=== PATIENT | male | born 1965 | race Caucasian/White ===

== ENCOUNTER 2016-09-21 15:47 | Inpatient (IN) | payer BC ==
[~2016-09-21] VITALS: Ht 180.3 cm; Wt 68.6 kg
[2016-09-21] VITALS (12 sets, daily range): BP systolic 120–164; BP diastolic 76–107
[~2016-09-21 15:47] MED LIST: AMOX-358 PO; ASPI-586 PO; CARV3.12 PO; CARV6.25 PO; CYCL10TA9 PO; DICL50TA4 PO; HYDR-3812 PO; HYDR1TAB PO; LISI-594 PO; LOPRESSOR PO; LSNP20T PO; METH4TAB PO; METOPROLOL PO; NITR0.4T39 SL; SULF1TAB38 PO; TICA90TA PO; TR1C15 TP
--- OUTSIDE RECORDS SUMMARY | 2016-09-21 15:52 | XMS REPORT ---
Author Author ADITYA GOMES Organization [facility] Address [address] [place] [address] Care Team Providers Care Teacher Of The Sight Impaired Name Role Phone ADITYA GOMES Unavailable PROBLEMS Type Condition ICD9-CM Code [id number] Code Onset Dates Condition Status SNOMED Code Assessment Bronchitis J40 Feb, Active [id number] Assessment Impacted cerumen of left ear H61.22 Feb, Active [id number] ALLERGIES Substance Reaction Event Type Date Status Rocephin Unknown Drug Allergy Feb, Active SOCIAL HISTORY No smoking Hx information available PLAN OF CARE VITAL SIGNS Height 70 in 2016-02-22 Weight 171 lbs 2016-02-22 Heart Rate 68 bpm 2016-02-22 Respiratory Rate 18 2016-02-22 BMI 24.53 kg/m2 2016-02-22 Blood pressure systolic 130 mmHg 2016-02-22 Blood pressure diastolic 78 mmHg 2016-02-22 MEDICATIONS Medication Instructions Dosage Frequency Start Date End Date Duration Status Zithromax 250 MG Orally Once a day 2 tablets on the first day, then 1 tablet daily for 4 days 24h Feb, Feb, 5 day(s) Active Lisinopril 5 MG Orally Once a day 1 tablet 24h Active Aspir-Doreen 325 mg take 1 tablet (325 mg) by oral route once daily Dec, Active RESULTS No Results PROCEDURES Procedure Date Ordered Related Diagnosis Body Site EAR LAVAGE 2016-02-22 N/A EAR IRRIGATION Feb 22, 2016 Office Visit, Est Pt., Level 2 Feb 22, 2016 IMMUNIZATIONS No Known Immunizations
--- OUTSIDE RECORDS SUMMARY | 2016-09-21 15:53 | XMS REPORT ---
Author ADITYA Alvarez [facility] eClinicalWorks Address Unknown Phone Unavailable Care Team Providers Care Rehabilitation Services Coordinator Name Role Phone ADITYA GOMES CP Unavailable Allergies, Adverse Reactions, Alerts Substance Reaction Event Type Rocephin Info Not Available Drug Allergy Problems Problem Type Condition Code Onset Dates Condition Status Problem Lumbago 724.2 Active Problem Other and unspecified alcohol dependence, unspecified drunkenness 303.90 Active Problem Lateral epicondylitis of elbow 726.32 Active Problem Counseling on substance use and abuse V65.42 Active Problem Acute bronchitis 466.0 Active Problem Unspecified conjunctivitis 372.30 Active Problem Essential hypertension, benign 401.1 Active Problem Nondependent tobacco use disorder 305.1 Active Problem Cough 786.2 Active Problem Acute upper respiratory infections of unspecified site 465.9 Active Assessment Abdominal pain R10.9 Active Problem Chronic airway obstruction, not elsewhere classified 496 Active Problem Personal history of tobacco use, presenting hazards to health V15.82 Active Problem Phlebitis and thrombophlebitis of lower extremities, unspecified 451.2 Active Problem Scabies 133.0 Active Problem Screening examination for pulmonary tuberculosis V74.1 Active Problem Loss of weight 783.21 Active Medications Medication Code System Code Instructions Start Date End Date Status Dosage Brilinta [facility] [address]-52 90 MG Orally Twice a day 1 tablet Lisinopril [facility] [address]-66 5 MG Orally Once a day 1 tablet Aspir-Doreen NDC 0 325 mg Jan 06, 2014 take 1 tablet (325 mg) by oral route once daily Procedures Procedure Coding System Code Date COMPREHEN METABOLIC PANEL CPT-4 00984 Dec 30, 2014 C-REACTIVE PROTEIN CPT-4 09762 Dec 30, 2014 COMPLETE CBC W/AUTO DIFF WBC CPT-4 16655 Dec 30, 2014 Office Visit, Est Pt., Level 4 CPT-4 00772 Dec 30, 2014 VENIPUNCT, ROUTINE* CPT-4 73387 Dec 30, 2014 Vital Signs Date/Time: Dec 30, 2014 Temperature 97.9 F Weight 145 lbs Height 70 in BMI 20.80 Index Blood Pressure Diastolic 80 mmHg Blood Pressure Systolic 122 mmHg Cardiac Monitoring Heart Rate 78 bpm Results Name Result Date Reference Range Unit Abnormality Flag ROUTINE VENIPUNCTURE CMP Summary Purpose eClinicalWorks Submission
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
--- NOTE | 2016-09-21 16:06 | Diagnostic Imaging Report ---
EXAM: CT head. TECHNIQUE: Noncontrast axial images of the brain were obtained. INDICATION: Left-sided weakness. FINDINGS: There is no intracranial hemorrhage, edema or mass effect. The brain parenchyma appears unremarkable. No hydrocephalus. The visualized portions of the orbits and paranasal sinuses appear unremarkable. IMPRESSION: Unremarkable study. Dictated by: Dictated on workstation # [id number]
[2016-09-21] MEDS ORDERED: morphine INJ 10 MG/ML 1ML (SYR OR VIAL) ONE (16:07)
[2016-09-21] MEDS ORDERED: NS IV 1000 ML 1,000 ML IV SCH (16:08)
[2016-09-21] MEDS ORDERED: ALTEPLASE 100 MG/VIAL (ACTIVASE) IV ONE (16:08)
[2016-09-21] MEDS ORDERED: morphine INJ 10 MG/ML 1ML (SYR OR VIAL) IV STA (16:08)
--- NOTE | 2016-09-21 16:20 | ED Neurological Problem ---
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 FLACID ON L SIDE ON ADMIT TO ED. Nursing Sepsis Screen: No Definite Risk History of Present Illness Time seen by provider: 16:00 Initial Comments Patient and feeling crummy for the last day and a half and started having some chest pressure today so he took 325 of aspirin chewed it up at about 3:30. At that time he experienced full left sided body paralysis called his girlfriend drove him to the ER. He arrived here he has had mini strokes in the past but he states he's never had a stroke. He is not on a blood thinners other than aspirin 81 mg daily plus to 325 he took around 3:30. His last known well time was 3:30 this afternoon. He is having dull 4 out of 10 chest pain on the left side without shortness of breath diaphoresis or nausea. The patient had a heart attack approximately 2 years ago and was taken care of by Dr. Gutierrez in [place]. He was then supposed to follow up with cardiology and [place] but although he has insurance he does not have a primary care physician and did not have a referral so he could not make an appointment. He has not established with a primary since then so he saw the anime designer one time approximately a year ago but not since. He is taking lisinopril although he thinks he missed this morning. Allergies and Home Medications Allergies Coded Allergies: ceftriaxone sodium (Verified Allergy, Intermediate, ITCHING AND SWELLING, 04/14/11) Home Medications Aspirin 81 Mg Tablet., 81 MG PO DAILY, (Reported) Lisinopril 5 Mg Tablet, 5 MG PO DAILY, (Reported) Constitutional: No chills, No diaphoresis, No fever, malaise Respiratory: No cough, No short of breath, No wheezing Cardiovascular: chest pain (left-sided 45 out of 10), No edema, Hx of Intervention (2 years ago stents placed by Dr. Gutierrez), No palpitations, No syncope, vascular heart diseas Gastrointestinal: No abdominal pain, No constipation, No diarrhea, No nausea Genitourinary: No discharge (JUNIE), No dysuria Musculoskeletal: No back pain, No joint pain Skin: No pruritus, No rash Past Wqcpoer-Mncdei-Lutzwx Hx Patient Social History Alcohol Use: Occasionally Uses Recreational Drug Use: No Smoking Status: Current Everyday Smoker Type Used: Cigarettes Recent Foreign Travel: No Contact w/Someone Who Travel: No Recent Infectious Disease Expo: No Recent Hopitalizations: No Immunizations Up To Date Tetanus Booster (TDap): Less than 5yrs Date of Influenza Vaccine: Dec 12, 2008 Seasonal Allergies Seasonal Allergies: No Surgeries HX Surgeries: Yes (stent x 1) Surgeries: Coronary Stent Respiratory Hx Respiratory Disorders: Yes Respiratory Disorders: COPD Cardiovascular Hx Cardiac Disorders: Yes (LAD STENT) Cardiac Disorders: Coronary Artery Disease, Heart Murmur, High Cholesterol, Hypertension Neurological Hx Neurological Disorders: Yes (3 TIA'S LAST ONE 2006) Neurological Disorders: TIA Reproductive System Hx Reproductive Disorders: No Genitourinary Hx Genitourinary Disorders: No Gastrointestinal Hx Gastrointestinal Disorders: No Musculoskeletal Hx Musculoskeletal Disorders: Yes Musculoskeletal Disorders: Degenerate Disk Disease Endocrine Hx Endocrine Disorders: No HEENT HX ENT Disorders: No Cancer Hx Cancer: No Psychosocial Hx Psychiatric Problems: No Integumentary HX Skin/Integumentary Disorder: No Blood Transfusions Hx Blood Disorders: No Family Medical History Significant Family History: No Pertinent Family Hx Physical Exam Vital Signs Vital Sign - Last 12Hours 09/21/16 15:47 Temp 98.9 Pulse 82 Resp 18 B/P (MAP) 168/108 Pulse Ox 98 O2 Delivery Nasal Cannula O2 Flow Rate 2.00 Capillary Refill : Less Than 3 Seconds General Appearance: WD/WN, mild distress HEENT: PERRL/EOMI, normal ENT inspection, TMs normal, pharynx normal Neck: non-tender, full range of motion, supple, normal inspection Respiratory: chest non-tender, lungs clear, normal breath sounds Cardiovascular: normal peripheral pulses, regular rate, rhythm, no edema, no murmur Peripheral Pulses: 3+ Dorsalis Pedis (R), 3+ Left Dors-Pedis (L), 3+ Radial Pulses (R), 3+ Radial Pulses (L) Gastrointestinal: normal bowel sounds, non tender, soft Extremities: no pedal edema, normal capillary refill 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, alert, normal mood/affect, oriented x 3 Coordination/Gait: positive Romberg's sign (left upper and lower extremities) Motor/Sensory: sensory deficit (no sensation from the calf down or forearm distal on the left side.), weak motor strength LUE (no movement against gravity) , weak motor strength LLE (no movement against gravity) Reflexes: 2+ Knee (R), 2+ Knee (L) Skin: normal color, warm/dry, ecchymosis (left Hansen) Lymphatic: no adenopathy Stroke Onset of Symptoms Date of Onset of Symptoms: Sep 21, 2016 Time of Symptom Onset: 15:30 Onset of Symptoms: Yes Symptoms onset unknown: No NIH Stroke Scale Assessment Select: Initial Level of Consciousness: 0=Alert Level of Consciousness-Questio: 0=Answers both month/age LOC Commands: 0=Performs both tasks Gaze: 0=Normal Visual Fallon: 0=No visual loss Facial Movement (Facial Paresi: 2=Partial paralysis Motor Function-Arms Right: 0=No drift Motor Function-Arms Left: 3=No effort/gravity Motor Function-Legs Right: 0=No drift Motor Function-Legs Left: 3=No effort/gravity Limb Ataxia: 1=Present in one limb Sensory: 1=Mild to Moderate loss Best Language: 0=No aphasia Dysarthria: 1=Mild to moderate loss Extinction & Inattention: 0=No abnormality NIH Stroke Scale Score: 11 Stroke Thrombolytic Exclusion Age 18 or Over: Yes Acute intenal hemorrhage: No History of CVA: No (history of TIAs) Uncontrolled Coagulation Defec: No Intracranial Hemorrhage: No Severe Hypertension: No GI or Bleed: No Subarachnoid Hemorrhage: No Intracranial Neoplasm/Aneurysm: No Oral Anticoagulants: No Surgery or Trauma: No Puncture of Non-Compressible V: No Recent CPR: No Diabetic Hemorrhagic Retinopat: No Organ Biopsy: No Recent Obstetric Delivery: No Glucose: No (84) Significant Hepatic Dysfunctio: No NIH Stoke Scale >22: No Bacterial Endocarditis: No Pericarditis: No Improving Symptoms: No Platelets: No TPA Contraindication: No IV - TPa Received IV - TPa Procedure Performed?: Yes IV - TPa Date: Sep 21, 2016 IV - TPa Time: 16:27 Progress/Results/Core Measures Results/Orders Lab Results Laboratory Tests Test 09/21/16 15:49 09/21/16 16:39 Range/Units White Blood Count 7.8 4.3-11.0 10^3/uL Red Blood Count 5.04 4.35-5.85 10^6/uL Hemoglobin 17.2 13.3-17.7 G/DL Hematocrit 49 40-54 % Mean Corpuscular Volume 97 80-99 FL Mean Corpuscular Hemoglobin 34 25-34 PG Mean Corpuscular Hemoglobin Concent 35 32-36 G/DL Red Cell Distribution Width 11.7 10.0-14.5 % Platelet Count 216 130-400 10^3/uL Mean Platelet Volume 10.0 7.4-10.4 FL Neutrophils (%) (Auto) 50 42-75 % Lymphocytes (%) (Auto) 34 12-44 % Monocytes (%) (Auto) 14 H 0-12 % Eosinophils (%) (Auto) 1 0-10 % Basophils (%) (Auto) 1 0-10 % Neutrophils # (Auto) 3.9 1.8-7.8 X 10^3 Lymphocytes # (Auto) 2.6 1.0-4.0 X 10^3 Monocytes # (Auto) 1.1 H 0.0-1.0 X 10^3 Eosinophils # (Auto) 0.1 0.0-0.3 10^3/uL Basophils # (Auto) 0.1 0.0-0.1 10^3/uL Prothrombin Time 13.6 12.2-14.7 SEC INR Comment 1.1 0.8-1.4 Activated Partial Thromboplast Time 29 24-35 SEC D-Dimer < 0.27 0.00-0.49 UG/ML Sodium Level 138 135-145 MMOL/L Potassium Level 3.7 3.6-5.0 MMOL/L Chloride Level 105 98-107 MMOL/L Carbon Dioxide Level 22 21-32 MMOL/L Anion Gap 11 5-14 MMOL/L Blood Urea Nitrogen 11 7-18 MG/DL Creatinine 0.74 0.60-1.30 MG/DL Estimat Glomerular Filtration Rate > 60 BUN/Creatinine Ratio 15 Glucose Level 76 70-105 MG/DL Calcium Level 9.5 8.5-10.1 MG/DL Magnesium Level 2.1 1.8-2.4 MG/DL Total Bilirubin 1.7 H 0.1-1.0 MG/DL Aspartate Amino Transf (AST/SGOT) 16 5-34 U/L Alanine Aminotransferase (ALT/SGPT) 16 0-55 U/L Alkaline Phosphatase 73 40-136 U/L Myoglobin 34.9 10.0-92.0 NG/ML Troponin I < 0.30 <0.30 NG/ML Total Protein 7.5 6.4-8.2 GM/DL Albumin 4.5 3.2-4.5 GM/DL Urine Color YELLOW Urine Clarity CLEAR Urine pH 6 5-9 Urine Specific [place] 1.010 L 1.016-1.022 Urine Protein NEGATIVE NEGATIVE Urine Glucose (UA) NEGATIVE NEGATIVE Urine Ketones 2+ H NEGATIVE Urine Nitrite NEGATIVE NEGATIVE Urine Bilirubin NEGATIVE NEGATIVE Urine Urobilinogen NORMAL NORMAL MG/DL Urine Leukocyte Esterase NEGATIVE NEGATIVE Urine RBC (Auto) 1+ H NEGATIVE Urine RBC 0-2 /HPF Urine WBC NONE /HPF Urine Squamous Epithelial Cells RARE /HPF Urine Crystals NONE /LPF Urine Bacteria NONE /HPF Urine Casts NONE /LPF Urine Mucus NEGATIVE /LPF Urine Culture Indicated NO My Orders Orders - KATELYN ZAMAN Ct Head Wo-R/O Stroke (09/21/16 15:53) Cbc With Automated Diff (09/21/16 16:08) Protime With Inr (09/21/16 16:08) Partial Thromboplastin Time (09/21/16 16:08) Comprehensive Metabolic Panel (09/21/16 16:08) Fibrin Degradation Products (09/21/16 16:08) Troponin I (09/21/16 16:08) Ua Culture If Indicated (09/21/16 16:08) Chest 1 View, Ap/Pa Only (09/21/16 16:08) Catheter(Urinary) Insert & Ass 03,15 (09/21/16 16:08) Ekg Tracing (09/21/16 16:08) Nothing By Mouth (09/21/16 Dinner) Accucheck Stat ONCE (09/21/16 16:08) Saline Lock/Iv-Start (09/21/16 16:08) Saline Lock/Iv-Start (09/21/16 16:08) Vital Signs-Stroke Q1H (09/21/16 16:08) O2 (09/21/16 16:08) Intake & Output 06,14,22 (09/21/16 16:08) Monitor-Rhythm Ecg Trace Only (09/21/16 16:08) Dysphagia Screening Tool (09/21/16 16:08) Alteplase (Activase) (Activase Injection (09/21/16 16:08) Ns Iv 1000 Ml (Sodium Chloride 0.9%) (09/21/16 16:08) Post Thrombolytic Adminstratio (09/21/16 16:08) Post Thrombolytic Adminstratio (09/21/16 16:08) Magnesium (09/21/16 16:08) Cardiac Profile 1 (09/21/16 16:08) Myoglobin Serum (09/21/16 16:08) O2 (09/21/16 16:08) Lipid Panel (09/22/16 06:00) Morphine Injection (Morphine Injection (09/21/16 16:08) Morphine Injection (Morphine Injection (09/21/16 16:07) Ct Angio Head/Neck (09/21/16 16:40) Iohexol Injection (Omnipaque 350 Mg/Ml 1 (09/21/16 17:00) Ns (Ivpb) (Sodium Chloride 0.9% Ivpb Bag (09/21/16 17:00) Ondansetron Injection (Zofran Injectio (09/21/16 17:00) Medications Given in ED Current Medications Medications Dose Ordered Sig/Tom Route Start Time Stop Time Status Last Admin Dose Admin Alteplase, Recombinant 70 mg 1608 ONCE IV 09/21/16 16:08 09/21/16 16:13 DC 09/21/16 16:27 70 MG Iohexol 100 ml ONCE ONCE IV 09/21/16 17:00 09/21/16 17:01 DC 09/21/16 17:19 80 ML Ondansetron HCl 4 mg ONCE ONCE IVP 09/21/16 17:00 09/21/16 17:01 DC 09/21/16 17:18 4 MG Sodium Chloride 100 ml ONCE ONCE IV 09/21/16 17:00 09/21/16 17:01 DC 09/21/16 17:19 80 ML Vital Signs/I&O Vital Sign - Last 12Hours 09/21/16 09/21/16 09/21/16 15:47 15:47 17:09 Temp 98.9 Pulse 82 67 Resp 18 18 B/P (MAP) 168/108 155/96 Pulse Ox 98 96 O2 Delivery Nasal Cannula Room Air O2 Flow Rate 2.00 Blood Pressure Mean: 128 Progress Note : Time: 17:00 Progress Note Patient with left-sided hemiparalysis that is improved after the bolus and infusion initiated on the TPA. Discussed the case with [facility] and see neuro first. There is a patient had a surgeries in the CT scanner presently and I'm told it may be another 10 minutes before we can get a CTA done. ECG Initial ECG Impression Date: Sep 21, 2016 Initial ECG Impression Time: 15:50 Initial ECG Rate: 84 Initial ECG Rhythm: Normal Sinus Initial ECG Intervals: Normal Initial ECG Intervals Normal intervals Initial ECG Impression: Normal, Nonspecific Changes Initial ECG Comparisson: Unchanged Comment No ST-T wave aberrations noted. Diagnostic Imaging Diagonstic Imaging: Xray Plain Films/CT/US/NM/MRI: chest Comments [place], [place] NAME: RODERICK HUI [facility] REC#: [id number] PT STATUS: REG ER : 1965 PHYSICIAN: KATELYN ZAMAN MD ADMIT DATE: 09/21/16/ER Draft Date of Exam:09/21/16 CHEST 1 VIEW, AP/PA ONLY EXAMINATION: Portable upright radiograph of the chest. INDICATION: Dizziness. FINDINGS: The lungs are clear. The heart size is normal. No effusion or pneumothorax. The mediastinum and kristan appear unremarkable. IMPRESSION: Unremarkable exam. Dictated on workstation # [id number] Dict: 09/21/16 1651 Trans: 09/21/16 1653 [id number] Interpreted by: JED GUILLERMO MD Electronically signed by: Reviewed: Reviewed by Me Diagonstic Imaging: CT Plain Films/CT/US/NM/MRI: head (W/O) Comments NAME: RODERICK HUI [facility] REC#: [id number] PHYSICIAN: KATELYN ZAMAN MD CC: JED GUILLERMO MD; KATELYN ZAMAN Page 1 of 1 RADIOLOGY REPORT [place], [place] CC: JED GUILLERMO MD; KATELYN ZAMAN Page 1 of 1 RADIOLOGY REPORT NAME: BARBRAUYEN JINSUHAIL Maldonado [facility] REC#: [id number] PT STATUS: REG ER : 1965 PHYSICIAN: KATELYN ZAMAN MD ADMIT DATE: 09/21/16/ER Signed Date of Exam: 09/21/16 CT HEAD WO-R/O STROKE EXAM: CT head. TECHNIQUE: Noncontrast axial images of the brain were obtained. INDICATION: Left-sided weakness. FINDINGS: There is no intracranial hemorrhage, edema or mass effect. The brain parenchyma appears unremarkable. No hydrocephalus. The visualized portions of the orbits and paranasal sinuses appear unremarkable. IMPRESSION: Unremarkable study. Dictated by: Dictated on workstation # [id number] Dict: 09/21/16 1603 Trans: 09/21/16 1603 Interpreted by: JED GUILLERMO MD Electronically signed by: JED GUILLERMO MD 09/21/161602 Reviewed: Reviewed by Wi Diagonstic Imaging: CT (Angio) Plain Films/CT/US/NM/MRI: head (and neck) Comments NAME: RODERICK HUI [facility] REC#: [id number] PT STATUS: REG ER : 1965 PHYSICIAN: KATELYN ZAMAN MD ADMIT DATE: 09/21/16/ER Draft Date of Exam:09/21/16 CT ANGIO HEAD/NECK PROCEDURE: CT angiography of the head and CT angiography of the neck with and without contrast. TECHNIQUE: Contiguous noncontrast images were obtained from the skull base through the vertex. After intravenous contrast administration, helical CT angiography of the neck was performed. Source data was reformatted into multiple MIP projections. Delayed post contrast acquisition was also obtained. INDICATION: Left-sided weakness. COMPARISON: CT head without contrast from earlier today. FINDINGS: No high-grade narrowing, aneurysm, or dissection involving the basilar, bilateral carotid, vertebral, anterior cerebral, middle cerebral, or posterior cerebral arteries. The superior, anteroinferior, and posteroinferior cerebellar arteries are patent. Conventional aortic arch. Codominant vertebral arteries. The anterior and posterior communicating arteries are patent. The visualized dural venous sinuses are grossly patent. No abnormal intracranial enhancement. Osseous structures are intact. Moderate spondylotic changes in the cervical spine are most marked at C5-C7. Emphysematous changes and scarring in the lung apices, right greater than left. IMPRESSION: No high-grade narrowing, aneurysm, or dissection involving the major arteries in the head and neck. Dictated on workstation # [id number] Dict: 09/21/16 1744 Trans: 09/21/16 1754 [id number] Interpreted by: MICHELE PUTNAM MD Electronically signed by: Reviewed: Reviewed by Me Departure Communication Time/Spoke to Admitting Phy: 18:03 Communication Carlos: consult cardiology Time/Spoke to Consulting Physi: 18:08 Communication/Consulting Dr. Monreal: Do serial troponins and EKG in the morning. Impression Impression: Primary Impression: CVA (cerebral vascular accident) Qualified Codes: I63.9 - Cerebral infarction, unspecified Additional Impression: Chest pain at rest Disposition: 09 ADMITTED INPATIENT Condition: Improved Decision to Admit Reason: Admit from ER (General) Decision to Admit/Date: Sep 21, 2016 Time/Decision to Admit Time: 18:13 Departure-Patient Inst. Referrals: NO,LOCAL PHYSICIAN (PCP/Family) Primary Care Physician Copy Copies To 1: JACKELYN CARLOS TITUS J Sep 21, 2016 16:20
[2016-09-21 16:34] LABS: BASOPHILS # (AUTO) 0.1 10^3/uL (0.0-0.1); BASOPHILS % (AUTO) 1 % (0-10); EOSINOPHILS # (AUTO) 0.1 10^3/uL (0.0-0.3); EOSINOPHILS % (AUTO) 1 % (0-10); LYMPHOCYTES # (AUTO) 2.6 X 10^3 (1.0-4.0); LYMPHOCYTES % (AUTO) 34 % (12-44); MEAN CORPUSCULAR HEMOGLOBIN 34 PG (25-34); MEAN CORPUSCULAR HGB CONC 35 G/DL (32-36); MEAN CORPUSCULAR VOLUME 97 FL (80-99); MONOCYTES # (AUTO) 1.1 X 10^3 (0.0-1.0); MONOCYTES % (AUTO) 14 % (0-12); NEUTROPHILS # (AUTO) 3.9 X 10^3 (1.8-7.8); NEUTROPHILS % (AUTO) 50 % (42-75); PLATELET COUNT 216 10^3/uL (130-400); RED BLOOD COUNT 5.04 10^6/uL (4.35-5.85); RED CELL DISTRIBUTION WIDTH 11.7 % (10.0-14.5); WHITE BLOOD COUNT 7.8 10^3/uL (4.3-11.0)
[2016-09-21 16:36] LABS: INR 1.1 (0.8-1.4); PARTIAL THROMBOPLASTIN TIME 29 SEC (24-35); PROTHROMBIN TIME PATIENT 13.6 SEC (12.2-14.7)
[2016-09-21 16:43] LABS: BILIRUBIN,URINE NEGATIVE (NEGATIVE); KETONES,URINE 2+ (NEGATIVE); LEUKOCYTE ESTERASE ,URINE NEGATIVE (NEGATIVE); NITRITE,URINE NEGATIVE (NEGATIVE); PH,URINE 6 (5-9); PROTEIN,URINE NEGATIVE (NEGATIVE); UROBILINOGEN,URINE NORMAL (NORMAL)
[2016-09-21 16:43] LABS: ALANINE AMINOTRANSFERASE 16 U/L (0-55); ALBUMIN 4.5 GM/DL (3.2-4.5); ANION GAP 11 MMOL/L (5-14); ASPARTATE AMINO TRANSFERASE 16 U/L (5-34); BILIRUBIN,TOTAL 1.7 MG/DL (0.1-1.0); BLOOD UREA NITROGEN 11 MG/DL (7-18); BUN/CREATININE RATIO 15; CALCIUM 9.5 MG/DL (8.5-10.1); CARBON DIOXIDE 22 MMOL/L (21-32); CHLORIDE 105 MMOL/L (98-107); CREATININE SERUM 0.74 MG/DL (0.60-1.30); GFR ESTIMATED > 60; GLUCOSE 76 MG/DL (70-105); POTASSIUM 3.7 MMOL/L (3.6-5.0); SODIUM 138 MMOL/L (135-145); TOTAL PROTEIN 7.5 GM/DL (6.4-8.2)
[2016-09-21 16:50] LABS: TROPONIN I < 0.30 NG/ML (<0.30)
[2016-09-21 16:51] LABS: MAGNESIUM 2.1 MG/DL (1.8-2.4); MYOGLOBIN SERUM 34.9 NG/ML (10.0-92.0)
--- NOTE | 2016-09-21 16:53 | Diagnostic Imaging Report ---
EXAMINATION: Portable upright radiograph of the chest. INDICATION: Dizziness. FINDINGS: The lungs are clear. The heart size is normal. No effusion or pneumothorax. The mediastinum and kristan appear unremarkable. IMPRESSION: Unremarkable exam. Dictated by: Dictated on workstation # [id number]
[2016-09-21 16:54] LABS: SQUAMOUS EPITHELIAL CELL,UR RARE /HPF
[2016-09-21] MEDS ORDERED: IOHEXOL 350 MG/ML 100 ML (OMNIPAQUE 350) VIAL IV ONE (17:00)
[2016-09-21] MEDS ORDERED: NS 100 ML (IVPB) BAG IV ONE (17:00)
[2016-09-21] MEDS ORDERED: ONDANSETRON 4 MG/2 ML (SDV) Z0FRAN IVP ONE (17:00)
--- NOTE | 2016-09-21 17:54 | Diagnostic Imaging Report ---
PROCEDURE: CT angiography of the head and CT angiography of the neck with and without contrast. TECHNIQUE: Contiguous noncontrast images were obtained from the skull base through the vertex. After intravenous contrast administration, helical CT angiography of the neck was performed. Source data was reformatted into multiple MIP projections. Delayed post contrast acquisition was also obtained. INDICATION: Left-sided weakness. COMPARISON: CT head without contrast from earlier today. FINDINGS: No high-grade narrowing, aneurysm, or dissection involving the basilar, bilateral carotid, vertebral, anterior cerebral, middle cerebral, or posterior cerebral arteries. The superior, anteroinferior, and posteroinferior cerebellar arteries are patent. Conventional aortic arch. Codominant vertebral arteries. The anterior and posterior communicating arteries are patent. The visualized dural venous sinuses are grossly patent. No abnormal intracranial enhancement. Osseous structures are intact. Moderate spondylotic changes in the cervical spine are most marked at C5-C7. Emphysematous changes and scarring in the lung apices, right greater than left. IMPRESSION: No high-grade narrowing, aneurysm, or dissection involving the major arteries in the head and neck. Dictated by: Dictated on workstation # [id number]
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
[2016-09-21] MEDS ORDERED: ONDANSETRON 4 MG/2 ML (SDV) Z0FRAN IV PRN (19:30)
[2016-09-21] MEDS ORDERED: morphine INJ 4 MG/ML 1 ML (VIAL/SYRINGE) IV PRN (19:30)
[2016-09-21] MEDS ORDERED: CATHETER FLUSH 10 ML SYR IV PRN (19:30)
[2016-09-21] MEDS: CATHETER FLUSH 10 ML SYR IV SCH (20:44)
[2016-09-21] MEDS ORDERED: ATORVASTATIN 40 MG (LIPITOR) TABLET PO SCH (21:00)
[2016-09-22] VITALS (23 sets, daily range): BP systolic 95–145; BP diastolic 62–97
[2016-09-22 04:20] LABS: BASOPHILS % (AUTO) 0 % (0-10); EOSINOPHILS # (AUTO) 0.1 10^3/uL (0.0-0.3); EOSINOPHILS % (AUTO) 1 % (0-10); LYMPHOCYTES # (AUTO) 1.6 X 10^3 (1.0-4.0); LYMPHOCYTES % (AUTO) 17 % (12-44); MEAN CORPUSCULAR HEMOGLOBIN 34 PG (25-34); MEAN CORPUSCULAR HGB CONC 35 G/DL (32-36); MEAN CORPUSCULAR VOLUME 98 FL (80-99); MEAN PLATELET VOLUME 10.1 FL (7.4-10.4); MONOCYTES # (AUTO) 1.2 X 10^3 (0.0-1.0); MONOCYTES % (AUTO) 13 % (0-12); NEUTROPHILS # (AUTO) 6.4 X 10^3 (1.8-7.8); NEUTROPHILS % (AUTO) 69 % (42-75); PLATELET COUNT 174 10^3/uL (130-400); RED BLOOD COUNT 4.52 10^6/uL (4.35-5.85); RED CELL DISTRIBUTION WIDTH 11.8 % (10.0-14.5); WHITE BLOOD COUNT 9.3 10^3/uL (4.3-11.0)
[2016-09-22 05:17] LABS: ALANINE AMINOTRANSFERASE 11 U/L (0-55); ALBUMIN 3.7 GM/DL (3.2-4.5); ANION GAP 13 MMOL/L (5-14); ASPARTATE AMINO TRANSFERASE 11 U/L (5-34); BILIRUBIN,TOTAL 1.8 MG/DL (0.1-1.0); BLOOD UREA NITROGEN 10 MG/DL (7-18); BUN/CREATININE RATIO 15; CALCIUM 8.5 MG/DL (8.5-10.1); CARBON DIOXIDE 20 MMOL/L (21-32); CHLORIDE 106 MMOL/L (98-107); CREATININE SERUM 0.68 MG/DL (0.60-1.30); GFR ESTIMATED > 60; GLUCOSE 77 MG/DL (70-105); PHOSPHORUS 3.4 MG/DL (2.3-4.7); POTASSIUM 3.5 MMOL/L (3.6-5.0); SODIUM 139 MMOL/L (135-145); TOTAL PROTEIN 6.2 GM/DL (6.4-8.2)
[2016-09-22] MEDS: POTASSIUM CL 10MEQ/50ML IVPB 50 ML IV SCH (05:20)
[2016-09-22] MEDS: MAGNESIUM 1 GM/100 ML IVPB 100 ML IV SCH (05:21)
[2016-09-22] MEDS: KCL 20 MEQ TAB (K-DUR) PO SCH (05:21)
[2016-09-22 05:23] LABS: CHOLESTEROL 159 MG/DL (< 200); DIRECT LDL 119 MG/DL (1-129); TRIGLYCERIDES 81 MG/DL (<150); VLDL CHOLESTEROL 16 MG/DL (5-40)
[2016-09-22 05:25] LABS: TROPONIN I < 0.30 NG/ML (<0.30)
[2016-09-22] MEDS ORDERED: KCL 20 MEQ TAB (K-DUR) PO ONE (05:30)
[2016-09-22] MEDS: CATHETER FLUSH 10 ML SYR IV SCH ×3 (05:35→21:00)
--- NOTE | 2016-09-22 06:54 | Pulmonary Consultation ---
History of Present Illness History of Present Illness Date of Consultation 09/22/16 06:47 Time Seen by Provider: 06:47 Date of Admission History of Present Illness 50yo with hx of ID 2 yrs ago presented secondary to chest pain and not feeling right over the last 1-2 days. Symptoms progressed to left sided paralysis yesterday. Upon admission pt's NIH was 11 now 2 s/p TPA. He has had 2 previous CVAs in the past per patient . Denies SOB or diaphoresis. Pt is now doing much better in ICU. I am consulted for CC management. Pt has already passed swallow evaluation. RN states pt has been desaturating while sleeping. Pt admits to smoking for "yrs" up to 2 paks/day Allergies and Home Medications Allergies Coded Allergies: ceftriaxone sodium (Verified Allergy, Intermediate, ITCHING AND SWELLING, 04/14/11) Home Medications Aspirin 81 Mg Tablet.dr, 81 MG PO DAILY, (Reported) Lisinopril 5 Mg Tablet, 5 MG PO DAILY, (Reported) Past Amnhmub-Tktbta-Fqddrr Hx Patient Social History Alcohol Use: Occasionally Uses Recreational Drug Use: No Smoking Status: Current Everyday Smoker Type Used: Cigars, Cigarettes Recent Foreign Travel: No Contact w/Someone Who Travel: No Recent Infectious Disease Expo: No Recent Hopitalizations: No Physical Abuse Screen: No Sexual Abuse: No Immunizations Up To Date Tetanus Booster (TDap): Less than 5yrs Date of Influenza Vaccine: Dec 12, 2008 Seasonal Allergies Seasonal Allergies: No Surgeries HX Surgeries: Yes (stent x 1) Surgeries: Coronary Stent Respiratory Hx Respiratory Disorders: Yes Respiratory Disorders: COPD Cardiovascular Hx Cardiac Disorders: Yes (LAD STENT) Cardiac Disorders: Coronary Artery Disease, Heart Murmur, High Cholesterol, Hypertension Neurological Hx Neurological Disorders: Yes (3 TIA'S LAST ONE 2006) Neurological Disorders: TIA Reproductive System Hx Reproductive Disorders: No Sexually Transmitted Disease: No HIV/AIDS: No Genitourinary Hx Genitourinary Disorders: No Gastrointestinal Hx Gastrointestinal Disorders: No Musculoskeletal Hx Musculoskeletal Disorders: Yes Musculoskeletal Disorders: Degenerate Disk Disease Endocrine Hx Endocrine Disorders: No HEENT HX ENT Disorders: No Cancer Hx Cancer: No Psychosocial Hx Psychiatric Problems: No Integumentary HX Skin/Integumentary Disorder: No Blood Transfusions Hx Blood Disorders: No Family Medical History Significant Family History: No Pertinent Family Hx Review of Systems Time Seen by Provider: 07:22 Constitutional: Malaise, Weakness (left sided ), No: Chills, Fever, Other, Sweats Eyes: No: Conjunctivae inflammation, Eyelid inflammation, Other, Pain, Redness , Vision change ENT: No: Ear discharge, Ear pain, Mouth pain, Mouth swelling, Nose congestion, Nose discharge, Nose pain, Other, Throat pain, Throat swelling Respiratory: Cough, SOB with excertion, Shortness of breath, No: Hemoptysis, Sputum, Wheezing Cardiovascular: Chest Pain, Lt Headedness, Paroxysmal Noc. Dyspnea Gastrointestinal: No: Abdominal Pain, Constipation, Diarrhea, Hematochezia, Melena, Nausea, Other, Vomiting Neurological: Confusion, Incoordination, Weakness Exam Exam Vital Signs Date Time Temp Pulse Resp B/P (MAP) Pulse Ox O2 Delivery O2 Flow Rate FiO2 09/22/16 06:12 Nasal Cannula 2.00 09/22/16 06:00 53 13 138/75 96 Nasal Cannula 2.00 09/22/16 05:00 56 19 104/70 90 Nasal Cannula 2.00 09/22/16 04:00 52 24 125/79 90 Nasal Cannula 2.00 09/22/16 04:00 97 Nasal Cannula 2.00 09/22/16 03:00 55 14 117/74 90 Nasal Cannula 2.00 09/22/16 02:00 53 19 95/62 91 Nasal Cannula 2.00 09/22/16 01:00 55 09/22/16 01:00 55 19 119/63 92 Nasal Cannula 2.00 09/22/16 00:00 55 17 113/81 94 Nasal Cannula 2.00 09/22/16 00:00 98.4 Nasal Cannula 2.00 09/22/16 00:00 97 Nasal Cannula 2.00 09/21/16 23:00 55 21 125/76 92 Nasal Cannula 2.00 09/21/16 22:00 56 11 120/82 92 Nasal Cannula 2.00 09/21/16 21:30 72 13 158/96 93 Nasal Cannula 2.00 09/21/16 21:00 70 8 148/98 95 Nasal Cannula 2.00 09/21/16 20:30 57 16 135/76 94 Nasal Cannula 2.00 09/21/16 20:08 98.3 Nasal Cannula 2.00 09/21/16 20:00 97 Nasal Cannula 2.00 09/21/16 20:00 58 26 157/107 96 Nasal Cannula 2.00 09/21/16 19:45 66 29 155/105 98 Nasal Cannula 2.00 09/21/16 19:30 55 21 146/91 96 Nasal Cannula 2.00 09/21/16 19:15 62 22 142/96 95 Nasal Cannula 2.00 09/21/16 19:09 Nasal Cannula 2.00 09/21/16 19:00 62 09/21/16 19:00 Nasal Cannula 2.00 09/21/16 19:00 59 20 150/97 97 Nasal Cannula 2.00 09/21/16 18:45 98.0 56 15 164/98 97 Nasal Cannula 2.00 09/21/16 17:09 67 18 155/96 96 09/21/16 15:47 98.9 82 18 168/108 98 Room Air 09/21/16 15:47 Nasal Cannula 2.00 I & O 09/22/16 07:00 Intake Total 380 ml Output Total 1300 ml Balance -920 ml General Appearance: No Apparent Distress, WD/WN HEENT: PERRL/EOMI, Normal ENT Inspection, Pharynx Normal Neck: Full Range of Motion, Normal Inspection, Non Tender, Supple, No Carotid Bruit Respiratory: Normal Breath Sounds, No Accessory Muscle Use, No Respiratory Distress, Decreased Breath Sounds Cardiovascular: Regular Rate, Rhythm, No Edema, No JVD Capillary Refill: Less Than 3 Seconds Peripheral Pulses: 3+ Dorsalis Pedis (R), 3+ Left Dors-Pedis (L), 3+ Radial Pulses (R), 3+ Radial Pulses (L) Gastrointestinal: normal bowel sounds, non tender, soft Extremity: Normal Capillary Refill, Normal Inspection Neurologic/Psychiatric: Alert, Oriented x3 Skin: Normal Color, Cool Lymphatic: No Adenopathy Results Lab Laboratory Tests 09/21/16 15:49 09/22/16 03:16 Assessment/Plan Assessment/Plan Acute CVA with left sided weakness. S/P TPA -Improved s/p TPA pt feels much improved -Check echo, carotid dopplers -pt passed swallow eval -check MRI today -Start antiplatelet probably plavix therapy later today 24 hrs after TPA and after MRI Heavy tobacco use with probable COPD -PT will probably need oxygen prior to discharge -SVNs -oxygen Probable MARIELENA , witnessed apnea per RN and desaturation with sleep, prior hx of acute ID, and CVA -Pt need out pt sleep study in lab secondary to probably needing nocturnal oxygen 255 90 min spent with patient and medical team discussing pts condition and plan of care. Clinical Quality Measures DVT/VTE Risk/Contraindication: Risk Factor Score Per Nursin RFS Level Per Nursing on Admit: 4+=Very High Stroke: Date of last known well: Sep 21, 2016 Time of last known well: 15:30 Symptoms onset unknown: No IAN GEORGE DO Sep 22, 2016 06:54
[2016-09-22] MEDS ORDERED: RT-ALBUTEROL/IPRATROPIUM 3 ML (DUONEB) VIAL INH SCH (07:15)
[2016-09-22] MEDS ORDERED: RT-ALBUTEROL/IPRATROPIUM 3 ML (DUONEB) VIAL INH PRN (07:30)
--- NOTE | 2016-09-22 07:41 | Diagnostic Imaging Report ---
INDICATION: CVA. Portable chest 4:11 AM. Heart size and pulmonary vascularity are normal. Lungs are clear. There are no effusions or pneumothoraces. IMPRESSION: Negative chest. Dictated by: Dictated on workstation # [id number]
--- NOTE | 2016-09-22 08:22 | Diagnostic Imaging Report ---
PROCEDURE: US Carotid Duplex Bilateral. TECHNIQUE: Multiple real-time grayscale images were obtained over the carotid arteries in various projections bilaterally. Additional duplex Doppler and color Doppler images were also obtained. INDICATION: CVA. FINDINGS: Grayscale images demonstrate mild calcified plaque along the proximal left internal carotid artery and minimal plaque in the proximal right ICA. There is color Doppler demonstrating patency of the common, internal and external carotid arteries on both sides. The vertebral arteries demonstrate antegrade flow bilaterally. Peak systolic velocities on the right side are 78, 98, and 109 cm per second and on the left ICA are 76, 123, and 90 cm per second. ICA/CCA radios are up to 0.96 on the right and 1.0 on the left. IMPRESSION: Minimal plaque at the carotid bifurcation bilaterally with estimated underlying stenosis below 50 percent bilaterally. Dictated by: Dictated on workstation # [id number]
--- NOTE | 2016-09-22 09:36 | Diagnostic Imaging Report ---
EXAMINATION: Bilateral lower extremity duplex venous ultrasound. TECHNIQUE: DVT protocol. Multiple sonographic images with color Doppler and waveform interrogation were performed of the lower extremity veins, bilaterally, with compression and augmentation maneuvers. INDICATION: Bilateral leg pain. FINDINGS: The lower extremity veins from the common femoral veins to below the knee veins were examined with normal color-flow, compressibility and normal waveform demonstrated. The great saphenous vein bilaterally is patent. IMPRESSION: No evidence of DVT in either lower extremity. Dictated by: Dictated on workstation # [id number]
[2016-09-22] MEDS: RT-ALBUTEROL/IPRATROPIUM 3 ML (DUONEB) VIAL INH SCH ×3 (10:14→20:08)
[2016-09-22] MEDS: RT-ADVAIR HFA 115/21 MCG PER PUFF IH SCH ×2 (10:14→20:08)
--- NOTE | 2016-09-22 10:44 | Physical Therapy Evaluation ---
PT Evaluation-General Medical Diagnosis Admission Date Sep 21, 2016 at 18:16 Medical Diagnosis: CVA Onset Date: Sep 21, 2016 Therapy Diagnosis Therapy Diagnosis: debility Height/Weight Height (Feet): 5 Height (Inches): 11.00 Weight (Pounds): 160 Weight (Ounces): 0.0 Precautions Precautions/Isolations: Fall Prevention, Standard Precautions Referral Physician: Peace Reason for Referral: Evaluation/Treatment Medical History Pertinent Medical History: CAD, HTN, Smoking Additional Medical History multiple TIA's Current History left sided full paralysis s/p TPA Reviewed History: Yes Social History Home: Single Level Current Living Status: Alone Prior/Core FIM Prior Level of Function Functional [place] Measure 0=Not Assessed/NA 4=Minimal Assistance 1=Total Assistance 5=Supervision or Setup 2=Maximal Assistance 6=Modified [place] 3=Moderate Assistance 7=Complete [place] Bed Mobility: 7 Transfers (B,C,W/C) (FIM): 7 Gait: 7 Locomotion: 7 PT Evaluation-Current Subjective Patient is very agreeable to participate with PT. Pain Numeric Pain Scale: 0-No Pain Location: No Pain Reported Objective Patient Orientation: Normal For Age Problem Solving: Good Attachments: Oxygen ROM/Strength ROM Lower Extremities bilateral LE WNL Strenght Lower Extremities bilateral LE 5/5 grossly Integumentary/Posture Integumentary refer to nursing notes Bowel Incontinence: No Bladder Incontinence: No Posture WNL Neuromuscular (Tone, Coordination, Reflexes) grossly intact with all Sensory Vision: Functional Hearing: Functional Sensation Right Lower Extremit: Intact Sensation Left Lower Extremity: Intact Transfers Functional [place] Measure 0=Not Assessed/NA 4=Minimal Assistance 1=Total Assistance 5=Supervision or Setup 2=Maximal Assistance 6=Modified [place] 3=Moderate Assistance 7=Complete [place] Transfers (B, C, W/C) (FIM): 7 Scootin Rollin Supine to/from Sit: 7 Sit to/from Stand: 7 Gait Mode of Locomotion: Walk Anticipated Mode of Locomotion: Walk Gait (FIM): 7 Distance (FIM): 3=150 ft Distance: 400' Gait Level of Assist: 7 Gait Assistive Device: None Comments/Gait Description safe, steady, normal Balance Sitting Static: Normal Sitting Dynamic: Normal Standing Static: Normal Standing Dynamic: Normal Assessment/Needs 50 y.o. male, s/p CVA with TPA given, is currently at an independent PLOF with all gross motor skills and does not require skilled therapy intervention at this time. PT instructed patient to be up ad rl in room and hallway. RN notified. Rehab Potential: Good PT Plan Treatment/Plan Treatment Plan: Discontinue PT, goals met Treatment Plan: Bed Mobility, Education, Functional Activity [place], Functional Strength, Gait, Safety, Therapeutic Exercise, Transfers Treatment Duration: Sep 22, 2016 Frequency: Daily Estimated Hrs Per Day: .25 hour per day Patient and/or Family Agrees t: Yes Discharge Recommendations Therapy D/C Recommendations: Home Independently Time/GCodes Time In: 1020 Time Out: 1035 Total Billed Treatment Time: 15 Total Billed Treatment 1 visit EVLowC 15 min RUDOLPH WU PT Sep 22, 2016 10:44
--- NOTE | 2016-09-22 10:48 | History & Physical-Hospitalist ---
HPI History of Present Illness: HPI/Chief Complaint CC: Acute CVA HPI: This is a 50 yoWM pt who presented to ER with left sided weakness and findings consistent with stroke. Protocol followed and ultimately received TPA with now complete resolution of residual from acute stroke. director of curriculum: Carotid, US, and other imaging performed this am. Pt will be started on Plavix 2100 if everything is negative PT/OT not needed Waiting on MRI currently to be performed at 1600 Possible to DC tomorrow Patient Interview: Pt met Dr. Hand and pt states his pain is better. Pt states that he has had many strokes in the past. Pt has a stent from Dr. Gutierrez after a heart attack. Pt has not had a follow up due to needing a referral. Pt confirms smoking. Pt states that he drinks less than he has previously. 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 Imaging results look good and this was discussed. Pt was informed that we are waiting for the MRI. Pt has requested coffee Scribed by Zoila Fowler under the direct supervision of Dr. White. Source: patient Date Seen 09/22/16 Time Seen by Provider: 09:30 Attending Physician Monica White DO PCP No,Local Physician Referring Physician Date of Admission Sep 21, 2016 at 18:16 Home Medications & Allergies Home Medications Reviewed patient Home Medication Reconciliation Form Allergies Allergies Coded Allergies ceftriaxone sodium (Verified Allergy, Intermediate, ITCHING AND SWELLING, ) Past Ktcclxq-[id number]-Qgyods Hx Patient Social History Employed/Student: employed Alcohol Use: Occasionally Uses Recreational Drug Use: No Smoking Status: Current Everyday Smoker Type Used: Cigars, Cigarettes Physical Abuse Screen: No Sexual Abuse: No Recent Foreign Travel: No Contact w/other who traveled: No Recent Hopitalizations: No Recent Infectious Disease Expo: No Immunizations Up To Date Tetanus Booster (TDap): Less than 5yrs Date of Influenza Vaccine: Dec 12, 2008 Seasonal Allergies Seasonal Allergies: No Surgeries HX Surgeries: Yes (stent x 1) Surgeries: Coronary Stent Respiratory Hx Respiratory Disorders: Yes Cardiovascular Hx Cardiovascular Disorders: Yes (LAD STENT) Cardiac Disorders: Coronary Artery Disease, Heart Murmur, High Cholesterol, Hypertension Neurological Hx Neurological Disorders: Yes (3 TIA'S LAST ONE 2006) Neurological Disorders: TIA Reproductive System Hx Reproductive Disorders: No Sexually Transmitted Disease: No HIV/AIDS: No Genitourinary Hx Genitourinary Disorders: No Gastrointestinal Hx Gastrointestinal Disorders: No Musculoskeletal Hx Musculoskeletal Disorders: Yes Musculoskeletal Disorders: Degenerate Disk Disease Endocrine Hx Endocrine Disorders: No HEENT HX ENT Disorders: No Cancer Hx Cancer: No Psychosocial Hx Psychiatric Problems: No Integumentary HX Skin/Integumentary Disorder: No Blood Transfusions Hx Blood Disorders: No Family Medical History Significant Family History: No Pertinent Family Hx Review of Systems Constitutional: see HPI, weakness EENTM: no symptoms reported Respiratory: no symptoms reported Cardiovascular: no symptoms reported Gastrointestinal: no symptoms reported Musculoskeletal: no symptoms reported Skin: no symptoms reported Psychiatric/Neurological: Weakness (left sided weakness now resolved) Physical Exam Physical Exam Vital Signs Vital Sign - Last 12Hours 09/21/16 15:47 Temp 98.9 Pulse 82 Resp 18 B/P (MAP) 168/108 Pulse Ox 98 O2 Delivery Nasal Cannula O2 Flow Rate 2.00 Capillary Refill : Less Than 3 Seconds General Appearance: No Apparent Distress, WD/WN, Chronically ill, Thin Eyes: Bilateral Eye Normal Inspection, Bilateral Eye PERRL HEENT: PERRL/EOMI, Normal ENT Inspection, Pharynx Normal Neck: Full Range of Motion, Normal Inspection, Non Tender, Supple, Carotid Bruit Respiratory: Chest Non Tender, Lungs Clear, Normal Breath Sounds, No Accessory Muscle Use, No Respiratory Distress Cardiovascular: Regular Rate, Rhythm, No Edema, No Gallop, No JVD, No Murmur, Normal Peripheral Pulses Gastrointestinal: Normal Bowel Sounds, No Organomegaly, No Pulsatile Mass, Non Tender, Soft Back: Normal Inspection, No CVA Tenderness, No Vertebral Tenderness Extremity: Normal Capillary Refill, Normal Inspection, Normal Range of Motion, Non Tender, No Calf Tenderness, No Pedal Edema Neurologic/Psychiatric: Alert, Oriented x3, No Motor/Sensory Deficits, Normal Mood/Affect Skin: Normal Color, Warm/Dry Lymphatic: No Adenopathy Results Results/Procedures Lab Laboratory Tests 09/21/16 15:49 09/22/16 03:16 Assessment/Plan Admission Diagnosis Assessment: Acute CVA s/p tPA w/complete resolution of symptoms CAD w/acute NH s/p stent placement [address] Gutierrez w/o f/u compliance Smoker current ETOH abuse Assessment and Plan Plan: MRI today 1600 Monitor pt Plavix tonight Smoking cessation Clinical Quality Measures DVT/VTE Risk/Contraindication: Risk Factor Score Per Nursin RFS Level Per Nursing on Admit: 4+=Very High Stroke: Date of last known well: Sep 21, 2016 Time of last known well: 15:30 Symptoms onset unknown: MONICA Abarca DO Sep 22, 2016 10:47
--- NOTE | 2016-09-22 11:42 | Consultation-Cardiology ---
HPI-Cardiology Cardiology Consultation: Date of Consultation 09/22/16 Date of Admission Attending Physician Monica White DO Admitting Physician Alexia,Local Physician Consulting Physician Alexandria MONREAL MD HPI: Time Seen by Provider: 11:34 Chief Complaint: chest pain and left-sided weakness this is a 50-year-old gentleman with history of previous ND and PCI to LAD in [place] 2 years ago. He is an active smoker. He also has history of hypertension and hyperlipidemia. He does not have diabetes. He presents with chest pain similar to the chest pain he had 2 years ago however less intense. He also developed left-sided motor weakness. Acute stroke protocol was initiated and the patient received TPA. No residual deficit. No bleeding. The patient is not having any chest pain. Denies any motor weakness. However he does complain of left lower extremity discomfort with exertion which may be secondary to claudication. Review of Systems-Cardiology Review of Systems Constitutional: No As described under HPI, No no symptoms reported, No chills, No fever, No lightheadedness, No malaise, No tiredness, No weight loss, No weight gain, No other Eyes: No As described under HPI, No no symptoms reported, No blindness, No blurred vision, No contact lenses, No drainage, No decreased acuity, No foreign body sensation, No glasses, No inflammation, No pain, No photophobia, No previous injury, No shadows, No tunnel vision, No other, No vision change Ears/Nose/Throat: No As described under HPI, No no symptoms reported, No chronic hearing loss, No epistaxis, No ear discharge, No ear pain, No loose teeth, No mouth pain, No mouth swelling, No nasal drainage, No nose pain, No recent hearing loss, No throat pain, No throat swelling, No ulcerations, No other Respiratory: No no symptoms reported, No As described under HPI, No cough, No orthopnea, No shortness of breath, No SOB with excertion, No SOB at rest, No stridor, No wheezing, No other Cardiovascular: chest pain Gastrointestinal: No no symptoms reported, No As described under HPI, No abdomen distended, No abdominal pain, No blood streaked bowels, No constipation , No diarrhea, No difficulty swallowing, No nausea, No poor appetite, No poor fluid intake, No rectal bleeding, No vomiting, No other, No nausea/vomiting/ diarrhea, No stool coloration changes Genitourinary: No no symptoms reported, No As described under HPI, No burning, No dysuria, No discharge, No frequency, No flank pain, No hematuria, No incontinence, No pain, No urgency, No other, No urine frequency changes, No urine coloration changes Musculoskeletal: No no symptoms reported, No As describe under HPI, No back pain, No gout, No joint pain, No joint swelling, No muscle pain, No muscle stiffness, No neck pain, No other Skin: No no symptoms reported, No As described under HPI, No change in color, No change in hair/nails, No dryness, No lesions, No lumps, No rash, No other, No skin related problems, No ulcerations, No rash on exposed areas, No ulcerations on exposed areas Psychiatric/Neurological: As described under HPI, weakness Hematologic: No no symptoms reported, No As described under HPI, No anemia, No blood clots, No easy bleeding, No easy bruising, No swollen glands, No other, No bleeding abnormalities EOE-Gfgron-Scnprv Hx Patient Social History Employed/Student: employed Alcohol Use: Occasionally Uses Recreational Drug Use: No Smoking Status: Current Everyday Smoker Type Used: Cigars, Cigarettes Recent Foreign Travel: No Recent Infectious Disease Expo: No Hospitalization with Isolation: Denies Physical Abuse Screen: No Sexual Abuse: No Immunizations Up To Date Tetanus Booster (TDap): Less than 5yrs Date of Influenza Vaccine: Dec 12, 2008 Past Medical History PMH As described under Assessment. Allergies and Home Medications Allergies Coded Allergies: ceftriaxone sodium (Verified Allergy, Intermediate, ITCHING AND SWELLING, 04/14/11) Home Medications No Active Prescriptions or Reported Meds Physical Exam-Cardiology Physical Exam Vital Signs/I&O Vital Sign - Last 12Hours 09/22/16 09/22/16 09/22/16 09/22/16 00:00 00:00 00:00 01:00 Temp 98.4 Pulse 55 55 Resp 17 19 B/P (MAP) 113/81 119/63 Pulse Ox 97 94 92 O2 Delivery Nasal Cannula Nasal Cannula Nasal Cannula Nasal Cannula O2 Flow Rate 2.00 2.00 2.00 2.00 09/22/16 09/22/16 09/22/16 09/22/16 01:00 02:00 03:00 04:00 Pulse 55 53 55 Resp 19 14 B/P (MAP) 95/62 117/74 Pulse Ox 91 90 97 O2 Delivery Nasal Cannula Nasal Cannula Nasal Cannula O2 Flow Rate 2.00 2.00 2.00 09/22/16 09/22/16 09/22/16 09/22/16 04:00 05:00 06:00 06:12 Pulse 52 56 53 Resp 24 19 13 B/P (MAP) 125/79 104/70 138/75 Pulse Ox 90 90 96 O2 Delivery Nasal Cannula Nasal Cannula Nasal Cannula Nasal Cannula O2 Flow Rate 2.00 2.00 2.00 2.00 09/22/16 09/22/16 09/22/16 09/22/16 07:00 08:20 10:15 10:23 Temp 97.9 Pulse 55 60 Resp 19 B/P (MAP) 105/63 Pulse Ox 93 95 O2 Delivery Nasal Cannula Nasal Cannula Nasal Cannula O2 Flow Rate 2.00 2.00 2.00 Intake and Output 09/22/16 00:00 Intake Total 380 ml Output Total 350 ml Balance 30 ml Capillary Refill : Less Than 3 Seconds Lymphatic: no adenopathy Data Review Labs Laboratory Tests 09/21/16 15:49: White Blood Count 7.8, Red Blood Count 5.04, Hemoglobin 17.2, Hematocrit 49, Mean Corpuscular Volume 97, Mean Corpuscular Hemoglobin 34, Mean Corpuscular Hemoglobin Concent 35, Red Cell Distribution Width 11.7, Platelet Count 216, Mean Platelet Volume 10.0, Neutrophils (%) (Auto) 50, Lymphocytes (%) (Auto) 34 , Monocytes (%) (Auto) 14H, Eosinophils (%) (Auto) 1, Basophils (%) (Auto) 1, Neutrophils # (Auto) 3.9, Lymphocytes # (Auto) 2.6, Monocytes # (Auto) 1.1H, Eosinophils # (Auto) 0.1, Basophils # (Auto) 0.1, Prothrombin Time 13.6, INR Comment 1.1, Activated Partial Thromboplast Time 29, D-Dimer < 0.27, Sodium Level 138, Potassium Level 3.7, Chloride Level 105, Carbon Dioxide Level 22, Anion Gap 11, Blood Urea Nitrogen 11, Creatinine 0.74, Estimat Glomerular Filtration Rate > 60, BUN/Creatinine Ratio 15, Glucose Level 76, Calcium Level 9.5, Magnesium Level 2.1, Total Bilirubin 1.7H, Aspartate Amino Transf (AST/SGOT ) 16, Alanine Aminotransferase (ALT/SGPT) 16, Alkaline Phosphatase 73, Myoglobin 34.9, Troponin I < 0.30, Total Protein 7.5, Albumin 4.5 09/21/16 16:10: Glucometer 84 09/21/16 16:39: Urine Color YELLOW, Urine Clarity CLEAR, Urine pH 6, Urine Specific [place] 1.010L, Urine Protein NEGATIVE, Urine Glucose (UA) NEGATIVE, Urine Ketones 2+H, Urine Nitrite NEGATIVE, Urine Bilirubin NEGATIVE, Urine Urobilinogen NORMAL, Urine Leukocyte Esterase NEGATIVE, Urine RBC (Auto) 1+H, Urine RBC 0-2, Urine WBC NONE, Urine Squamous Epithelial Cells RARE, Urine Crystals NONE, Urine Bacteria NONE, Urine Casts NONE, Urine Mucus NEGATIVE, Urine Culture Indicated NO 09/21/16 22:01: Troponin I < 0.30 09/22/16 03:16: White Blood Count 9.3, Red Blood Count 4.52, Hemoglobin 15.5, Hematocrit 44, Mean Corpuscular Volume 98, Mean Corpuscular Hemoglobin 34, Mean Corpuscular Hemoglobin Concent 35, Red Cell Distribution Width 11.8, Platelet Count 174, Mean Platelet Volume 10.1, Neutrophils (%) (Auto) 69, Lymphocytes (%) (Auto) 17 , Monocytes (%) (Auto) 13H, Eosinophils (%) (Auto) 1, Basophils (%) (Auto) 0, Neutrophils # (Auto) 6.4, Lymphocytes # (Auto) 1.6, Monocytes # (Auto) 1.2H, Eosinophils # (Auto) 0.1, Basophils # (Auto) 0.0, Sodium Level 139, Potassium Level 3.5L, Chloride Level 106, Carbon Dioxide Level 20L, Anion Gap 13, Blood Urea Nitrogen 10, Creatinine 0.68, Estimat Glomerular Filtration Rate > 60, BUN/ Creatinine Ratio 15, Glucose Level 77, Calcium Level 8.5, Phosphorus Level 3.4, Magnesium Level 2.0, Total Bilirubin 1.8H, Aspartate Amino Transf (AST/SGOT) 11 , Alanine Aminotransferase (ALT/SGPT) 11, Alkaline Phosphatase 60, Troponin I < 0.30, Total Protein 6.2L, Albumin 3.7, Triglycerides Level 81, Cholesterol Level 159, LDL Cholesterol Direct 119, VLDL Cholesterol 16, HDL Cholesterol 34L ECG Impression ECG Initial ECG Rhythm: Normal Sinus Comment symmetrical T-wave inversions in lead V1, V2 and V3. EKG : EKG Time: 11:38 A/P-Cardiology Assessment/Admission Diagnosis acute stroke, Unstable angina, Active smoking, Hypertension, Hyperlipidemia Plan acute stroke: Status post tPA. No residue or deficit. brain MRI today. Unstable angina: Serial troponin negative. EKG shows sinus rhythm with symmetrical T-wave inversions in lead V1, V2, V3. Patient had very similar chest pain when he had his ND 2 years ago. He has history of PCI to the LAD. I' ve discussed at length with the patient and recommended further noninvasive evaluation. We cannot perform invasive evaluation today since he received TPA less than 24 hours ago. we will most likely proceed with pharmacological nuclear stress test in the morning, if abnormal we will proceed with coronary angiography. Claudication: Bilateral lower extremity arterial ultrasound is requested. Hypertension: Continue outpatient medication. Hyperlipidemia: High-dose statin is recommended. Active smoking: Smoking cessation was strongly recommended however the patient is not very keen on smoking cessation. Thank you for your consultation. Please call me if you have any questions. Ulysses Monreal MD, FACP, FACC, FSCAI, FHRS, CCDS Interventional Cardiology Cardiac Electrophysiology Vascular Medicine and Endovascular Interventions Clinical Quality Measures DVT/VTE Risk/Contraindication: Risk Factor Score Per Nursin RFS Level Per Nursing on Admit: 4+=Very High Stroke: Date of last known well: Sep 21, 2016 Time of last known well: 15:30 Symptoms onset unknown: No Alexandria MONREAL MD Sep 22, 2016 11:42 am
--- NOTE | 2016-09-22 14:46 | Diagnostic Imaging Report ---
EXAMINATION: Upper and lower extremity pressure measurements of ankle/brachial index and pulse volume recording at the ankle. INDICATION: Claudication FINDINGS: The ankle/brachial index on the right side is 1.15, (1.15 PT, and 0.96 DP) and on the left is 1.11 (1.11 PT, and 0.95 DP). Pulse volume recording waveforms dampened amplitude slightly on the right side on the. IMPRESSION: Normal CHERYL, bilaterally. Dictated by: Dictated on workstation # [id number]
--- NOTE | 2016-09-22 15:01 | Occ Therapy Progress Note ---
Therapy Progress Note OT order received. Chart reviewed. Dr. White's note states that no PT/OT needed. Checked on pt. Pt. states he feels fine, and does not have any deficits, that all have resolved. No OT warranted at this time. 1415 1,visit Discharge BRENNEN MARQUIS OT Sep 22, 2016 15:01
--- NOTE | 2016-09-22 15:16 | Diagnostic Imaging Report ---
PROCEDURE: US Bilateral lower extremity arterial. TECHNIQUE: Multiple real-time grayscale images are obtained through both lower extremity arterial systems with color Doppler imaging and color Doppler spectral analysis. INDICATION: Left leg pain. FINDINGS: There is minimal plaque seen in the femoropopliteal segments bilaterally. Color Doppler demonstrates patency from the common femoral to popliteal and the dorsalis pedis and posterior tibial arteries on both sides. There is triphasic flow throughout in the right lower extremity except for the posterior tibial artery where there is transition to biphasic waveforms. In the left lower extremity, triphasic waveforms are seen with transition to biphasic waveforms in the dorsalis pedis. The velocity range on the right side of 73 to 133 and on the left side of 64 to 123 cm/s is within normal. IMPRESSION: Findings suggestive of [id number] infrapopliteal disease. Dictated by: Dictated on workstation # [id number]
[2016-09-22] MEDS ORDERED: GADOBUTROL 7.5 MMOL/7.5 ML (GADAVIST) VIAL IV ONE (16:30)
--- NOTE | 2016-09-22 17:23 | Diagnostic Imaging Report ---
PROCEDURE: MR imaging of the brain with and without contrast. TECHNIQUE: Multiplanar, multisequence MR imaging of the brain was performed with and without contrast. INDICATION: Left-sided weakness. CONTRAST: 7 mL of Gadavist is administered intravenously. The patient had been given TPA. FINDINGS: There is a 7 mm focus of increased diffusion signal with corresponding low intensity on the ADC map suggestive of tiny diffusion restriction located in the central aspect of the cerebellar vermis and is likely related to a focal acute lacunar infarct. There is no other diffusion restriction seen. The bai and white matter signal is within normal limits. No significant evidence of demyelinating disease or brain edema. The postcontrast images demonstrate no enhancing mass. The pituitary gland is normal in size. No hydrocephalus. No extra-axial fluid collection is seen. No hypothalamic or pineal region mass. The internal auditory canals and inner ear structures appear symmetric. The central vascular flow-voids appear grossly unremarkable. Mild mucosal thickening in the anterior ethmoidal air cells seen. IMPRESSION: Findings suggestive of 7 mm acute lacunar infarct in the central aspect of the cerebellar vermis. The findings were discussed with Dr. Hand by Dr. Coe at time of dictation. Dictated by: Dictated on workstation # [id number]
[2016-09-22] MEDS: CLOPIDOGREL 75 MG (PLAVIX) TABLET PO SCH (21:00)
[2016-09-22] MEDS: ATORVASTATIN 80 MG (LIPITOR) TABLET PO SCH (21:00)
[2016-09-23] VITALS (25 sets, daily range): BP systolic 95–136; BP diastolic 59–91
[2016-09-23] MEDS: RT-ALBUTEROL/IPRATROPIUM 3 ML (DUONEB) VIAL INH SCH ×4 (02:18→20:25)
[2016-09-23 04:10] LABS: BASOPHILS % (AUTO) 1 % (0-10); EOSINOPHILS # (AUTO) 0.1 10^3/uL (0.0-0.3); EOSINOPHILS % (AUTO) 2 % (0-10); LYMPHOCYTES % (AUTO) 18 % (12-44); MEAN CORPUSCULAR HEMOGLOBIN 34 PG (25-34); MEAN CORPUSCULAR HGB CONC 35 G/DL (32-36); MEAN CORPUSCULAR VOLUME 98 FL (80-99); MEAN PLATELET VOLUME 9.9 FL (7.4-10.4); MONOCYTES # (AUTO) 0.7 X 10^3 (0.0-1.0); MONOCYTES % (AUTO) 12 % (0-12); NEUTROPHILS # (AUTO) 3.9 X 10^3 (1.8-7.8); NEUTROPHILS % (AUTO) 68 % (42-75); PLATELET COUNT 166 10^3/uL (130-400); RED BLOOD COUNT 4.44 10^6/uL (4.35-5.85); RED CELL DISTRIBUTION WIDTH 11.7 % (10.0-14.5); WHITE BLOOD COUNT 5.8 10^3/uL (4.3-11.0)
[2016-09-23 04:27] LABS: ANION GAP 11 MMOL/L (5-14); BLOOD UREA NITROGEN 8 MG/DL (7-18); BUN/CREATININE RATIO 12; CALCIUM 8.8 MG/DL (8.5-10.1); CARBON DIOXIDE 23 MMOL/L (21-32); CHLORIDE 107 MMOL/L (98-107); CREATININE SERUM 0.66 MG/DL (0.60-1.30); GFR ESTIMATED > 60; GLUCOSE 111 MG/DL (70-105); MAGNESIUM 2.3 MG/DL (1.8-2.4); PHOSPHORUS 3.6 MG/DL (2.3-4.7); POTASSIUM 3.2 MMOL/L (3.6-5.0); SODIUM 141 MMOL/L (135-145)
[2016-09-23] MEDS: MAGNESIUM 1 GM/100 ML IVPB 100 ML IV SCH (06:00)
[2016-09-23] MEDS: CATHETER FLUSH 10 ML SYR IV SCH ×3 (06:07→22:00)
--- NOTE | 2016-09-23 07:22 | Pulmonary Progress Note ---
Subjective Time Seen by Provider: 07:23 Subjective/Events-last exam Pt is doing better still weak however almost back to baseline. Exam Exam Vital Signs Date Time Temp Pulse Resp B/P (MAP) Pulse Ox O2 Delivery O2 Flow Rate FiO2 09/23/16 06:00 74 16 97/62 94 Room Air 09/23/16 05:00 57 17 102/61 91 Room Air 09/23/16 04:00 98.9 58 20 95/62 90 Room Air 09/23/16 04:00 92 Room Air 09/23/16 03:00 68 21 99/59 92 Room Air 09/23/16 02:18 96 Room Air 09/23/16 02:00 51 16 102/67 92 Room Air 09/23/16 01:00 46 17 99/64 91 Room Air 09/23/16 01:00 46 09/23/16 00:00 97.3 61 17 98/63 91 Room Air 09/23/16 00:00 97 Room Air 09/22/16 23:00 56 16 103/64 91 Room Air 09/22/16 22:00 55 20 110/69 91 Room Air 09/22/16 21:00 78 21 145/77 95 Room Air 09/22/16 20:10 Room Air 09/22/16 20:08 95 Room Air 09/22/16 20:00 50 14 115/73 94 Room Air 09/22/16 20:00 99.5 09/22/16 20:00 97 Room Air 09/22/16 19:00 64 09/22/16 19:00 64 17 129/88 95 Room Air 09/22/16 18:00 57 25 112/71 Room Air 09/22/16 17:00 54 27 113/73 96 Room Air 09/22/16 16:45 Room Air 09/22/16 16:42 97.8 59 20 140/86 94 Room Air 09/22/16 15:10 93 Room Air 2.00 09/22/16 15:00 51 19 106/71 90 Room Air 09/22/16 14:00 56 30 130/80 92 Room Air 09/22/16 13:00 56 23 Room Air 09/22/16 13:00 62 09/22/16 12:42 Room Air 09/22/16 12:42 97.8 64 18 129/97 93 Room Air 09/22/16 11:00 66 113/73 Nasal Cannula 2.00 09/22/16 10:23 Nasal Cannula 2.00 09/22/16 10:15 95 Nasal Cannula 2.00 09/22/16 10:00 60 28 112/97 Nasal Cannula 2.00 09/22/16 09:00 65 15 118/75 Nasal Cannula 2.00 09/22/16 08:20 97.9 60 19 105/63 93 Nasal Cannula 2.00 09/22/16 08:20 Nasal Cannula 2.00 I & O 09/23/16 07:00 Intake Total 1660 ml Output Total 2200 ml Balance -540 ml General Appearance: No Apparent Distress, WD/WN, Chronically ill, Thin HEENT: PERRL/EOMI, Normal ENT Inspection, Pharynx Normal Neck: Full Range of Motion, Normal Inspection, Non Tender, Supple, Carotid Bruit Respiratory: Chest Non Tender, Lungs Clear, Normal Breath Sounds, No Accessory Muscle Use, No Respiratory Distress Cardiovascular: Regular Rate, Rhythm, No Edema, No Gallop, No JVD, No Murmur, Normal Peripheral Pulses Capillary Refill: Less Than 3 Seconds Peripheral Pulses: 3+ Dorsalis Pedis (R), 3+ Left Dors-Pedis (L), 3+ Radial Pulses (R), 3+ Radial Pulses (L) Gastrointestinal: normal bowel sounds, non tender, soft Extremity: Normal Capillary Refill, Normal Inspection, Normal Range of Motion, Non Tender, No Calf Tenderness, No Pedal Edema Neurologic/Psychiatric: Alert, Oriented x3, No Motor/Sensory Deficits, Normal Mood/Affect Skin: Normal Color, Warm/Dry Lymphatic: No Adenopathy Results Lab Laboratory Tests 09/21/16 15:49 09/22/16 03:16 09/23/16 03:29 Assessment/Plan Assessment/Plan Acute CVA with left sided weakness. S/P TPA -Improved s/p TPA pt feels much improved -echo, carotid dopplers -pt passed swallow eval - MRI reviewed - plavix Heavy tobacco use with probable COPD -PT will probably need oxygen prior to discharge -6min walk -SVNs -oxygen Probable MARIELENA , witnessed apnea per RN and desaturation with sleep, prior hx of acute IA, and CVA -Pt need out pt sleep study in lab secondary to probably needing nocturnal oxygen 233 Labs, radiology, reviewed Clinical Quality Measures DVT/VTE Risk/Contraindication: Risk Factor Score Per Nursin RFS Level Per Nursing on Admit: 4+=Very High Stroke: Date of last known well: Sep 21, 2016 Time of last known well: 15:30 Symptoms onset unknown: No IAN GEORGE DO Sep 23, 2016 07:22
[2016-09-23] MEDS: RT-ADVAIR HFA 115/21 MCG PER PUFF IH SCH ×2 (07:54→20:26)
--- NOTE | 2016-09-23 08:01 | Diagnostic Imaging Report ---
Portable upright radiograph of the chest. INDICATION: Dyspnea. Stroke. COMPARISON: 09/22/2016. FINDINGS: There is development of a tiny airspace consolidation in the left lung base laterally, favored to be atelectasis. The right lung is clear. The heart size is normal. No effusion or pneumothorax. The mediastinum and kristan appear unremarkable. IMPRESSION: Developing lateral left basilar opacity is favored to be atelectasis rather than early pneumonia. Correlate clinically. Dictated by: Dictated on workstation # [id number]
[2016-09-23] MEDS ORDERED: REGADENOSON 0.4 MG/5 ML SYR (LEXISCAN) IV ONE ×2 (09:22→10:15)
[2016-09-23] MEDS ORDERED: ATOR80TA76 PO (09:41)
[2016-09-23] MEDS ORDERED: CLOP75TA28 PO (09:41)
--- NOTE | 2016-09-23 10:00 | Discharge Summary-Hospitalist ---
Diagnosis/Chief Complaint Date of Admission Sep 21, 2016 at 18:16 Date of Discharge Discharge Date: Sep 23, 2016 Admission Diagnosis Assessment: Acute CVA s/p tPA w/complete resolution of symptoms CAD w/acute [place] s/p stent placement [address] Gutierrez w/o f/u compliance Smoker current ETOH abuse Discharge Diagnosis Assessment: Acute CVA s/p tPA w/complete resolution of symptoms but MRI noted acute infarct CAD w/acute [place] s/p stent placement [address] Gutierrez w/o f/u compliance now undergoing EST Smoker current counseled to stop ETOH abuse Reason Hospital Visit/Course CC: Acute CVA HPI: This is a 50 yoWM pt who presented to ER with left sided weakness and findings consistent with stroke. Protocol followed and ultimately received TPA with now complete resolution of residual from acute stroke. 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 Pt will be started on Plavix 2100 if everything is negative PT/OT not needed Waiting on MRI currently to be performed at 1600 Possible to DC tomorrow Patient Interview: Pt met Dr. Hand and pt states his pain is better. Pt states that he has had many strokes in the past. Pt has a stent from Dr. Gutierrez after a heart attack. Pt has not had a follow up due to needing a referral. Pt confirms smoking. Pt states that he drinks less than he has previously. 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 Imaging results look good and this was discussed. Pt was informed that we are waiting for the MRI. Pt has requested coffee Scribed by Zoila Fowler under the direct supervision of Dr. White. Notes from 09/23/16 Chart Review: Vitals signs stable CBC and CMP normal except K+ 3.2 MRI showed 7 mm acute lacunar infarct Pt will go home today and follow up with Dr. 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 Hand Pt is currently in [facility] Plan: Follow up with Dr. Hand Scribed by Zoila Fowler under the direct supervision of Dr. White. Hospital course: patient had an uneventful hospital course. Pt was admitted to ICU after CVA dx and tPA administered and quickly resolved the CVA signs and symptoms. MRI revealed acute infarct and Cardiology was consulted and performed an EST. Smoking cessation was discussed along with ETOH cessation. Pt will be DC on Plavix and f/u with Dr Hand for suspected MARIELENA and COPD. Discharge Summary Discharge Physical Examination Allergies: Coded Allergies: ceftriaxone sodium (Verified Allergy, Intermediate, ITCHING AND SWELLING, 04/14/11) Vitals & I&Os Vital Signs Date Time Temp Pulse Resp B/P (MAP) Pulse Ox O2 Delivery O2 Flow Rate FiO2 09/23/16 10:10 111 16 116/76 98 Room Air 09/23/16 08:31 98.8 09/23/16 07:40 0.00 Hospital Course Labs (last 24 hrs) Laboratory Tests 09/23/16 03:29: White Blood Count 5.8, Red Blood Count 4.44, Hemoglobin 15.2, Hematocrit 44, Mean Corpuscular Volume 98, Mean Corpuscular Hemoglobin 34, Mean Corpuscular Hemoglobin Concent 35, Red Cell Distribution Width 11.7, Platelet Count 166, Mean Platelet Volume 9.9, Neutrophils (%) (Auto) 68, Lymphocytes (%) (Auto) 18, Monocytes (%) (Auto) 12, Eosinophils (%) (Auto) 2, Basophils (%) (Auto) 1, Neutrophils # (Auto) 3.9, Lymphocytes # (Auto) 1.0, Monocytes # (Auto) 0.7, Eosinophils # (Auto) 0.1, Basophils # (Auto) 0.0, Sodium Level 141, Potassium Level 3.2L, Chloride Level 107, Carbon Dioxide Level 23, Anion Gap 11, Blood Urea Nitrogen 8, Creatinine 0.66, Estimat Glomerular Filtration Rate > 60, BUN/ Creatinine Ratio 12, Glucose Level 111H, Calcium Level 8.8, Phosphorus Level 3.6 , Magnesium Level 2.3 Pending Labs Laboratory Tests 09/23/16 03:29: White Blood Count 5.8, Red Blood Count 4.44, Hemoglobin 15.2, Hematocrit 44, Mean Corpuscular Volume 98, Mean Corpuscular Hemoglobin 34, Mean Corpuscular Hemoglobin Concent 35, Red Cell Distribution Width 11.7, Platelet Count 166, Mean Platelet Volume 9.9, Neutrophils (%) (Auto) 68, Lymphocytes (%) (Auto) 18, Monocytes (%) (Auto) 12, Eosinophils (%) (Auto) 2, Basophils (%) (Auto) 1, Neutrophils # (Auto) 3.9, Lymphocytes # (Auto) 1.0, Monocytes # (Auto) 0.7, Eosinophils # (Auto) 0.1, Basophils # (Auto) 0.0, Sodium Level 141, Potassium Level 3.2, Chloride Level 107, Carbon Dioxide Level 23, Anion Gap 11, Blood Urea Nitrogen 8, Creatinine 0.66, Estimat Glomerular Filtration Rate > 60, BUN/ Creatinine Ratio 12, Glucose Level 111, Calcium Level 8.8, Phosphorus Level 3.6 , Magnesium Level 2.3 Discharge Home Medications: Active Scripts Active Atorvastatin Calcium 80 Mg Tablet 80 Mg PO HS Clopidogrel (Clopidogrel Bisulfate) 75 Mg Tablet 75 Mg PO DAILY@2100 Instructions to patient/family Please see electonic discharge instructions given to patient. Clinical Quality Measures DVT/VTE Risk/Contraindication: Risk Factor Score Per Nursin RFS Level Per Nursing on Admit: 4+=Very High Stroke: Date of last known well: Sep 21, 2016 Time of last known well: 15:30 Symptoms onset unknown: JACKELYN Abarca DO Sep 23, 2016 10:00
[2016-09-23] MEDS ORDERED: FLUT12AE4 IH (10:32)
[2016-09-23] MEDS ORDERED: NS IV 500 ML 500 ML ONE (13:28)
[2016-09-23] MEDS: POTASSIUM CL 10MEQ/50ML IVPB 50 ML IV SCH ×3 (13:34→18:07)
[2016-09-23] MEDS: KCL 20 MEQ TAB (K-DUR) PO SCH (13:34)
[2016-09-23] MEDS ORDERED: NS IV 500 ML 500 ML IV ONE (13:45)
--- NOTE | 2016-09-23 14:22 | Cardiac Procedure Note-CS/ASA ---
Pre-Procedure Note Pre-Op Procedure Note H&P Reviewed The H&P was reviewed, patient examined and no changes noted. Date H&P Reviewed: Sep 23, 2016 Time H&P Reviewed: 14:22 Conscious Sedation Pre-Proced Time Reviewed: 14:22 ASA Class: 3 Airway Mallampati Classification: (redding appropriate class) I. II. III, IV Lungs Heart ASA score ASA 1: a normal healthy patient ASA 2: a patient with a mild systemic disease (mid diabetes, controlled hypertension, obesity ASA 3: a patient with a severe systemic disease that limits activity (angina , COPD, prior Myocardial infarction) ASA 4: a patient with an incapacitating disease that is a constant threat to life (CHF, renal failure) ASA 5: a moribund patient not expected to survive 24 hrs. (ruptured aneurysm) ASA 6: a declared brain patient whose organs are being harvested. For emergent operations, add the letter E after the classification Grade 1 Sedation Plan: Analgesia, Amnesia, Plan communicated to team members, Discussed options with patient/fam, Discussed risks with patient/fam Note The patient is an appropriate candidate to undergo the planned procedure, sedation, and anesthesia. The patient immediately re-assessed prior to indication. Alexandria NARVAEZ MD Sep 23, 2016 2:22 pm
--- NOTE | 2016-09-23 14:23 | Cardiology Progress Note ---
Cardiology SOAP Progress Note Subjective: no chest pain Objective: I&O/Vital Signs Vital Sign - Last 12Hours 09/23/16 09/23/16 09/23/16 09/23/16 03:00 04:00 04:00 05:00 Temp 98.9 Pulse 68 58 57 Resp 21 20 17 B/P (MAP) 99/59 95/62 102/61 Pulse Ox 92 92 90 91 O2 Delivery Room Air Room Air Room Air Room Air 09/23/16 09/23/16 09/23/16 09/23/16 06:00 07:00 07:00 07:40 Pulse 74 60 60 Resp 16 17 B/P (MAP) 97/62 110/72 Pulse Ox 94 93 O2 Delivery Room Air Room Air O2 Flow Rate 0.00 09/23/16 09/23/16 09/23/16 09/23/16 07:55 07:57 08:00 08:00 Pulse 70 Resp 14 B/P (MAP) 124/80 Pulse Ox 97 99 97 O2 Delivery Room Air Room Air Room Air Room Air 09/23/16 09/23/16 09/23/16 09/23/16 08:31 09:00 10:10 12:00 Temp 98.8 Pulse 63 111 Resp 22 16 B/P (MAP) 108/83 116/76 Pulse Ox 94 98 96 O2 Delivery Room Air Room Air Room Air 09/23/16 09/23/16 09/23/16 09/23/16 12:00 12:32 13:00 13:00 Temp 98.5 Pulse 68 66 66 Resp 24 25 B/P (MAP) 131/86 135/81 Pulse Ox 95 94 O2 Delivery Room Air Room Air 09/23/16 14:00 Pulse 63 Resp 25 B/P (MAP) 124/77 Pulse Ox 95 O2 Delivery Room Air Intake and Output 09/23/16 00:00 Intake Total 1180 ml Output Total 1525 ml Balance -345 ml Weight (Pounds): 159 Weight (Ounces): 4.0 Weight (Calculated Kilograms): 72.944671 Constitutional: No appears stated age, No AAO x 3, No apparent distress, No PERRL, No well-developed, No well-nourished, No other Respiratory: No accessory muscle use, No respiratory distress, No chest tender , No chest expansion is symmetric, No chest is bilaterally symmetric, No lungs clear to percussion, No lungs clear to auscultation, No crackles, No rhonchi, No rales, No stridor, No wheezing, No pleural rub, No other Cardiovascular: No regular rate-rhythm, No irregularly irregular, No extra beats, No parasternal heave is noted, No JVD, No edema, No bradycardia, No tachycardia, No point of maximal impulse, No cardiac thrills are palpable, No S1 and S2, No gallop/S3, No gallop/S4, No diastolic murmur, No systolic murmur, No friction rub, No click, No other Gastrointestional: No tender, No soft, No round, No distended, No pulsatile mass, No organomegaly, No guarding, No rebound, No tenderness, No hernia, No mass, No audible bowel sounds, No abnormal bowel sounds, No abdominal bruits, No spleenomegaly, No other Extremities: No normal range of motion, No non-tender, No normal inspection, No pedal edema, No calf tenderness, No normal capillary refill, No pelvis stable , No calf tenderness, No inflammation, No pedal edema, No slow capillary refill , No swelling, No other, No abrasion, No clubbing, No cyanosis, No ecchymosis, No laceration, No no lower extremity edema bilateral, No significant edema, No tenderness, No wound Neurologic/Psychiatric: No investment banking associate II-XII nml as tested, No no motor/sensory deficits, No alert, No normal mood/affect, No oriented x 3, No abnormal cerebellar tests, No abnormal investment banking associate II-XII, No abnormal gait, No aphasia, No EOM palsy, No facial droop, No motor weakness, No sensory deficit, No depressed affect, No disoriented x 3, No other, No grossly intact, No power is 5/5 both on sides Skin: No normal color, No warm/dry, No cyanosis, No cool, No diaphoresis, No damp, No ecchymosis, No jaundice, No mottled, No pallor, No rash, No tattoos/ piercings, No ulcerations, No rash on exposed areas, No ulcerations on exposed areas, No other Results/Procedures: Labs Laboratory Tests 09/23/16 03:29: White Blood Count 5.8, Red Blood Count 4.44, Hemoglobin 15.2, Hematocrit 44, Mean Corpuscular Volume 98, Mean Corpuscular Hemoglobin 34, Mean Corpuscular Hemoglobin Concent 35, Red Cell Distribution Width 11.7, Platelet Count 166, Mean Platelet Volume 9.9, Neutrophils (%) (Auto) 68, Lymphocytes (%) (Auto) 18, Monocytes (%) (Auto) 12, Eosinophils (%) (Auto) 2, Basophils (%) (Auto) 1, Neutrophils # (Auto) 3.9, Lymphocytes # (Auto) 1.0, Monocytes # (Auto) 0.7, Eosinophils # (Auto) 0.1, Basophils # (Auto) 0.0, Sodium Level 141, Potassium Level 3.2L, Chloride Level 107, Carbon Dioxide Level 23, Anion Gap 11, Blood Urea Nitrogen 8, Creatinine 0.66, Estimat Glomerular Filtration Rate > 60, BUN/ Creatinine Ratio 12, Glucose Level 111H, Calcium Level 8.8, Phosphorus Level 3.6 , Magnesium Level 2.3 A/P: Assessment/Dx: acute stroke, Unstable angina, Active smoking, Hypertension, Hyperlipidemia Plan: acute stroke: Status post tPA. No residue or deficit. brain MRI today. Unstable angina: Serial troponin negative. EKG shows sinus rhythm with symmetrical T-wave inversions in lead V1, V2, V3. Patient had very similar chest pain when he had his MO 2 years ago. He has history of PCI to the LAD. I' ve discussed at length with the patient and recommended further noninvasive evaluation. We cannot perform invasive evaluation today since he received TPA less than 24 hours ago. we will most likely proceed with pharmacological nuclear stress test which was done this morning. Myocardial perfusion imaging shows anterior infarct with yocasta-infarct ischemia. Coronary angiography is recommended. Claudication: Bilateral lower extremity arterial ultrasound shows mild to moderate disease. We'll perform peripheral angiography with lower extremity runoff. Hypertension: Continue outpatient medication. Hyperlipidemia: High-dose statin is recommended. Active smoking: Smoking cessation was strongly recommended however the patient is not very keen on smoking cessation. Thank you for your consultation. Please call me if you have any questions. Ulysses Monreal MD, FACP, FACC, FSCAI, FHRS, CCDS Interventional Cardiology Cardiac Electrophysiology Vascular Medicine and Endovascular Interventions Clinical Quality Measures Stroke: Date of last known well: Sep 21, 2016 Time of last known well: 15:30 Symptoms onset unknown: Alexandria Ingram MD Sep 23, 2016 2:23 pm
[2016-09-23] MEDS ORDERED: NS IV 1000 ML 1,000 ML ONE (14:37)
[2016-09-23] MEDS ORDERED: HEParin (CATH LAB) 2,000 ML IV ONE (14:37)
[2016-09-23] MEDS ORDERED: MIDAZOLAM 5 MG/5 ML (VERSED) VIAL ONE (15:28)
[2016-09-23] MEDS ORDERED: fentaNYL INJECTION 100 MCG/2 ML AMP ONE (15:28)
[2016-09-23] MEDS ORDERED: diphenhydrAMINE 50 MG/ML INJ (BENADRYL) ONE (15:28)
--- NOTE | 2016-09-23 16:48 | Cardiology Post Procedure Note ---
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 Post-Procedure Note Procedure Start Date: Sep 23, 2016 Procedure Start Time: 16:00 Name of Procedure: Coronary angiography, LHC, Peripheral angiography Findings/Procedure Note No significant PAD. Mild RCA disease. Patent stent in LAD with mild ISR. Occluded first diagonal with left to left collaterals. Small patent LCX flouro time 3 minutes flouro dose 313 mgy Anesthesia Type: Conscious Sedation Estimated blood loss (mL): 20 Contrast Amount: 123 Post-Procedure Diagnosis Post-operative diagnosis: Occluded first diagonal artery being filled by collaterals. Patent stent in LAD Alexandria NARVAEZ MD Sep 23, 2016 4:48 pm
[2016-09-23] MEDS ORDERED: PATIENT MAY USE OWN MEDS, ALL PO SCH (17:00)
[2016-09-23] MEDS: ATORVASTATIN 80 MG (LIPITOR) TABLET PO SCH (20:43)
[2016-09-23] MEDS: CLOPIDOGREL 75 MG (PLAVIX) TABLET PO SCH (20:43)
[2016-09-23] MEDS: NS IV 1000 ML 1,000 ML IV SCH (20:49)
[2016-09-24] VITALS (7 sets, daily range): BP systolic 118–143; BP diastolic 75–95
[2016-09-24] MEDS: RT-ALBUTEROL/IPRATROPIUM 3 ML (DUONEB) VIAL INH SCH ×2 (02:27→08:13)
[2016-09-24] MEDS: NS IV 1000 ML 1,000 ML IV SCH (02:48)
[2016-09-24 03:51] LABS: BASOPHILS % (AUTO) 0 % (0-10); EOSINOPHILS # (AUTO) 0.3 10^3/uL (0.0-0.3); EOSINOPHILS % (AUTO) 4 % (0-10); LYMPHOCYTES % (AUTO) 15 % (12-44); MEAN CORPUSCULAR HEMOGLOBIN 34 PG (25-34); MEAN CORPUSCULAR HGB CONC 35 G/DL (32-36); MEAN CORPUSCULAR VOLUME 100 FL (80-99); MEAN PLATELET VOLUME 9.8 FL (7.4-10.4); MONOCYTES # (AUTO) 0.8 X 10^3 (0.0-1.0); MONOCYTES % (AUTO) 12 % (0-12); NEUTROPHILS # (AUTO) 4.8 X 10^3 (1.8-7.8); NEUTROPHILS % (AUTO) 70 % (42-75); PLATELET COUNT 159 10^3/uL (130-400); RED BLOOD COUNT 4.45 10^6/uL (4.35-5.85); RED CELL DISTRIBUTION WIDTH 11.8 % (10.0-14.5); WHITE BLOOD COUNT 6.9 10^3/uL (4.3-11.0)
[2016-09-24 04:08] LABS: ANION GAP 11 MMOL/L (5-14); BLOOD UREA NITROGEN 10 MG/DL (7-18); BUN/CREATININE RATIO 14; CALCIUM 8.8 MG/DL (8.5-10.1); CARBON DIOXIDE 21 MMOL/L (21-32); CHLORIDE 108 MMOL/L (98-107); CREATININE SERUM 0.72 MG/DL (0.60-1.30); GFR ESTIMATED > 60; GLUCOSE 105 MG/DL (70-105); MAGNESIUM 2.1 MG/DL (1.8-2.4); PHOSPHORUS 2.7 MG/DL (2.3-4.7); POTASSIUM 3.7 MMOL/L (3.6-5.0); SODIUM 140 MMOL/L (135-145)
[2016-09-24] MEDS: CATHETER FLUSH 10 ML SYR IV SCH (06:01)
[2016-09-24] MEDS: POTASSIUM CL 10MEQ/50ML IVPB 50 ML IV SCH (06:02)
[2016-09-24] MEDS: KCL 20 MEQ TAB (K-DUR) PO SCH (06:02)
[2016-09-24] MEDS: MAGNESIUM 1 GM/100 ML IVPB 100 ML IV SCH (06:02)
[2016-09-24] MEDS: RT-ADVAIR HFA 115/21 MCG PER PUFF IH SCH (08:13)
[2016-09-24] MEDS ORDERED: CITA10TA7 PO (09:38)
--- NOTE | 2016-09-24 09:41 | Progress Note-Hospitalist ---
Progress Note HPI/CC on Admission CC: Acute CVA HPI: This is a 50 yoWM pt who presented to ER with left sided weakness and findings consistent with stroke. Protocol followed and ultimately received TPA with now complete resolution of residual from acute stroke. 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 Pt will be started on Plavix 2100 if everything is negative PT/OT not needed Waiting on MRI currently to be performed at 1600 Possible to DC tomorrow Patient Interview: Pt met Dr. Hand and pt states his pain is better. Pt states that he has had many strokes in the past. Pt has a stent from Dr. Gutierrez after a heart attack. Pt has not had a follow up due to needing a referral. Pt confirms smoking. Pt states that he drinks less than he has previously. 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 Imaging results look good and this was discussed. Pt was informed that we are waiting for the MRI. Pt has requested coffee Scribed by Zoila Fowler under the direct supervision of Dr. White. Notes from 09/23/16 Chart Review: Vitals signs stable CBC and CMP normal except K+ 3.2 MRI showed 7 mm acute lacunar infarct Pt will go home today and follow up with Dr. Hand because of suspected MARIELENA and other abnormalities 4 h youth development specialist: Pt looks okay to DC per Dr. Hand Pt is currently in [facility] AFS Plan: Follow up with Dr. Hand Scribed by Zoila Fowler under the direct supervision of Dr. White. Hospital course: patient had an uneventful hospital course. Pt was admitted to ICU after CVA dx and tPA administered and quickly resolved the CVA signs and symptoms. MRI revealed acute infarct and Cardiology was consulted and performed an EST. Smoking cessation was discussed along with ETOH cessation. Pt will be DC on Plavix and f/u with Dr Hand for suspected MARIELENA and COPD. Progress Notes/Assess & Plan Date Seen 09/24/16 Time Seen by Provider: 09:00 Admission Dx/Process CVA Diagonsis/Assessment & Plan patient was counseled on cessation of smoking. He complains of increased stress from his job that requires him to smoke he has tried Wellbutrin in the past without success. I gave him a trial of citalopram to see if it couldn't help with the stress and anxiety and he agrees to this. He is ready to go home today with follow-up with Dr. Hand and instructions to find a primary care physician. Physical exam is unremarkable today CLAUDIA CEDENO MD Sep 24, 2016 9:41 am
--- NOTE | 2016-09-24 10:38 | Diagnostic Imaging Report ---
INDICATION: Dyspnea. TECHNIQUE: Single view chest 5:16 AM. CORRELATION STUDY: 09/23/2016 FINDINGS: Heart size and mediastinum are generally stable given differences in technique. Coronary artery stent over the left heart border. Nodularity along the right diaphragm may be slight tenting, appears changed and may be minimal atelectasis. Slight blunting of the costophrenic angle could reflect trace pleural effusions. No significant infiltrate. IMPRESSION: 1. Perhaps minimal atelectasis of the right lung base and trace effusions. Otherwise, relatively stable and unremarkable chest. Dictated by: Dictated on workstation # [id number]
[2016-09-24] MEDS ORDERED: ASPI-983 PO (11:09)
--- NOTE | 2016-09-24 12:13 | Cardiology Progress Note ---
Cardiology SOAP Progress Note Subjective: No cardiac complaints Objective: I&O/Vital Signs Vital Sign - Last 12Hours 09/24/16 09/24/16 09/24/16 09/24/16 01:00 01:00 02:27 04:00 Pulse 65 58 Resp 23 B/P (MAP) 126/82 Pulse Ox 93 94 91 O2 Delivery Room Air Room Air Room Air 09/24/16 09/24/16 09/24/16 09/24/16 04:00 07:00 07:50 07:50 Temp 97.1 97.6 Pulse 70 58 68 Resp 14 14 B/P (MAP) 118/75 133/95 Pulse Ox 91 96 O2 Delivery Room Air Room Air Room Air 09/24/16 09/24/16 09/24/16 09/24/16 08:00 08:13 08:14 11:45 Temp 97.2 Pulse 77 67 Resp 30 20 B/P (MAP) 133/95 143/82 Pulse Ox 95 98 O2 Delivery Room Air Room Air Room Air Room Air Intake and Output 09/24/16 00:00 Intake Total 1810 ml Output Total 2025 ml Balance -215 ml Weight (Pounds): 151 Weight (Ounces): 4.0 Weight (Calculated Kilograms): 68.077509 Constitutional: No appears stated age, No AAO x 3, No apparent distress, No PERRL, No well-developed, No well-nourished, No other Respiratory: No accessory muscle use, No respiratory distress, No chest tender , No chest expansion is symmetric, No chest is bilaterally symmetric, No lungs clear to percussion, No lungs clear to auscultation, No crackles, No rhonchi, No rales, No stridor, No wheezing, No pleural rub, No other Cardiovascular: No regular rate-rhythm, No irregularly irregular, No extra beats, No parasternal heave is noted, No JVD, No edema, No bradycardia, No tachycardia, No point of maximal impulse, No cardiac thrills are palpable, No S1 and S2, No gallop/S3, No gallop/S4, No diastolic murmur, No systolic murmur, No friction rub, No click, No other Gastrointestional: No tender, No soft, No round, No distended, No pulsatile mass, No organomegaly, No guarding, No rebound, No tenderness, No hernia, No mass, No audible bowel sounds, No abnormal bowel sounds, No abdominal bruits, No spleenomegaly, No other Extremities: No normal range of motion, No non-tender, No normal inspection, No pedal edema, No calf tenderness, No normal capillary refill, No pelvis stable , No calf tenderness, No inflammation, No pedal edema, No slow capillary refill , No swelling, No other, No abrasion, No clubbing, No cyanosis, No ecchymosis, No laceration, No no lower extremity edema bilateral, No significant edema, No tenderness, No wound Neurologic/Psychiatric: No records officer II-XII nml as tested, No no motor/sensory deficits, No alert, No normal mood/affect, No oriented x 3, No abnormal cerebellar tests, No abnormal records officer II-XII, No abnormal gait, No aphasia, No EOM palsy, No facial droop, No motor weakness, No sensory deficit, No depressed affect, No disoriented x 3, No other, No grossly intact, No power is 5/5 both on sides Skin: No normal color, No warm/dry, No cyanosis, No cool, No diaphoresis, No damp, No ecchymosis, No jaundice, No mottled, No pallor, No rash, No tattoos/ piercings, No ulcerations, No rash on exposed areas, No ulcerations on exposed areas, No other Results/Procedures: Labs Laboratory Tests 09/24/16 03:26: White Blood Count 6.9, Red Blood Count 4.45, Hemoglobin 15.3, Hematocrit 44, Mean Corpuscular Volume 100H, Mean Corpuscular Hemoglobin 34, Mean Corpuscular Hemoglobin Concent 35, Red Cell Distribution Width 11.8, Platelet Count 159, Mean Platelet Volume 9.8, Neutrophils (%) (Auto) 70, Lymphocytes (%) (Auto) 15, Monocytes (%) (Auto) 12, Eosinophils (%) (Auto) 4, Basophils (%) (Auto) 0, Neutrophils # (Auto) 4.8, Lymphocytes # (Auto) 1.0, Monocytes # (Auto) 0.8, Eosinophils # (Auto) 0.3, Basophils # (Auto) 0.0, Sodium Level 140, Potassium Level 3.7, Chloride Level 108H, Carbon Dioxide Level 21, Anion Gap 11, Blood Urea Nitrogen 10, Creatinine 0.72, Estimat Glomerular Filtration Rate > 60, BUN/ Creatinine Ratio 14, Glucose Level 105, Calcium Level 8.8, Phosphorus Level 2.7 , Magnesium Level 2.1 A/P: Assessment/Dx: acute stroke, Unstable angina, Active smoking, Hypertension, Hyperlipidemia Plan: acute stroke: Status post tPA. No residue or deficit. brain MRI today. Unstable angina: Serial troponin negative. EKG shows sinus rhythm with symmetrical T-wave inversions in lead V1, V2, V3. Patient had very similar chest pain when he had his AR 2 years ago. He has history of PCI to the LAD. Coronary angiography showed patent stent. Occluded first diagonal with collaterals from the left coronary system. Medical therapy. Claudication: Bilateral lower extremity arterial ultrasound shows mild to moderate disease. Peripheral angiography with lower extremity runoff showed no significant peripheral disease. Hypertension: Continue outpatient medication. Hyperlipidemia: High-dose statin is recommended. Active smoking: Smoking cessation was strongly recommended however the patient is not very keen on smoking cessation. Okay to discharge to follow with cardiology as an outpatient Thank you for your consultation. Please call me if you have any questions. Ulysses Monreal MD, FACP, FACC, FSCAI, FHRS, CCDS Interventional Cardiology Cardiac Electrophysiology Vascular Medicine and Endovascular Interventions Clinical Quality Measures Stroke: Date of last known well: Sep 21, 2016 Time of last known well: 15:30 Symptoms onset unknown: Alexandria Ingram MD Sep 24, 2016 12:13 pm
--- NOTE | 2016-09-26 01:57 | STRESS TEST ---
PROCEDURE PHYSICIAN: COLIN MONREAL DATE OF PROCEDURE: 09/23/2016 NUCLEAR STRESS TEST REPORT: ATTENDING PHYSICIAN: Dr. Monica White ORDERING PHYSICIAN: Dr. Ulysses Monreal DIAGNOSES: 1. Stroke. 2. Chest pain. 3. Previous history of coronary artery disease with PCI to the LAD. PROCEDURE DETAILS: The patient was brought to the stress lab after informed consent was taken. Stress test was performed according to the protocol. 0.4 mg of Lexiscan was given with low grade exercise. Baseline electrocardiogram showed sinus rhythm. Blood pressure was 145/77 mmHg. Heart rate was [address]-T wave changes, chest pain, arrhythmias were noted. Myocardial card perfusion imaging was performed with a 10.12 mCi of Myoview at rest and 29.7 mCi of Myoview for stress imaging. TID 1.12. Ejection fraction 44%. There is a large fixed anterior defect with yocasta defect reversible anterior/septal moderate intensity, moderate sized defect. There is anterior hypokinesis. SSS 25, SRS 24, SDS 0. IMPRESSION/CONCLUSION: 1. Pharmacological stress test is negative for ischemia. 2. Mild LV systolic dysfunction is noted. 3. There is a large anterior infarct with yocasta-infarct ischemia. Job ID: [id number] Dictated Date: 09/23/2016 17:17:33 Lap Winder Date: 09/26/2016 01:52:21 / mil[place]
--- NOTE | 2016-09-27 08:14 | CARDIAC CATHETERIZATION ---
PROCEDURE PHYSICIAN: COLIN NARVAEZ CORONARY ANGIOGRAPHY REPORT DATE OF PROCEDURE: 09/23/2016 Indication: Prolonged episode of chest pain, abnormal nuclear stress test, history of PCI, Claudication PREOPERATIVE DIAGNOSIS: 1. Prolonged episode of chest pain. 2. History of PCI to the LAD. 3. Abnormal nuclear stress test. 4. Severe left-sided claudication. POSTOPERATIVE DIAGNOSIS: Patent stent in the LAD, occluded first diagonal artery, which is supplied by collaterals. HISTORY: Mr. Hairston is a 50-year-old gentleman with history of coronary artery disease with PCI to LAD performed 2 years ago. The patient also is an active smoker. He complains of exertional claudication to the left lower extremity. He presented with chest pain with sweating. Nuclear stress test showed abnormal perfusion. Coronary angiography and peripheral angiography was recommended. PROCEDURE PERFORMED: 1. Left heart catheterization. 2. Coronary angiography. 3. Peripheral angiography with bilateral lower extremity runoff. SPECIMENS: None. COMPLICATIONS: None. ESTIMATED BLOOD LOSS: 30 mL. Anticoagulation: None. Contrast dose: 123 mL of Isoview. Fluoroscopy time: 3 minutes. Fluoroscopy dose: 313 mGy. PROCEDURE DETAILS: The patient was brought to the [facility] after informed consent was taken. All the risks and complications were explained in detail. The patient was draped and prepped in the usual sterile fashion. Access was gained in the right femoral artery with a 6-Slovenian sheath. Left heart catheterization and peripheral angiography and bilateral lower extremity runoff was performed with a pigtail catheter. The right coronary artery was engaged with a JR4 catheter and the left coronary system was engaged with a JL4 catheter. FINDINGS: 1. Left heart catheterization: LV pressure 101/- 3 mmHg. LVEDP 9 mmHg, aortic pressure 105/60 mmHg. Mild systolic dysfunction with an EF of 40 to 45% with global hypokinesis. No gradient across the aortic valve. 2. RCA: Mild proximal and mid disease. 3. LEFT MAIN: Patent. 4. Left circumflex artery has mild disease with no severe focal stenosis. 5. LAD has a patent stent with mild in-stent restenosis with no focal stenosis noted. There is an occluded first diagonal which is supplied by left to left collaterals. LAD is a transapical vessel. 6. Peripheral angiography with lower extremity runoff: There is no distal aorta disease. There is very mild disease noted bilaterally in the common iliac artery, external iliac artery, common femoral artery, superficial femoral artery, popliteal artery. There is no moderate or severe disease noted. There is likely good out flow distally below the knee. There was a very brisk contrast runoff, therefore accurate visualization of the arteries below the knee was not possible. However, below the knee arteries seemed to be patent. IN SUMMARY: There is no significant peripheral arterial disease. IMPRESSION/CONCLUSION: 1. Patent stent in the LAD with mild in-stent restenosis. 2. Chronically occluded first diagonal with left to left collaterals. 3. No significant obtuse marginal disease and RCA. 4. No significant peripheral arterial disease. Job ID: [id number] Dictated Date: 09/25/2016 16:40:31 Railway Station Manager Date: 09/27/2016 07:54:02 / delfina AMATO
== END 2016-09-24 11:55 | disposition home or self-care (01) | DRG 62 ==
LOC: EDUNIT# 15:47 → ER 15:48 → ICU 18:16
PROVIDERS: ADMIT Internal Medicine; ATTEND Internal Medicine
PROC: 3E03317 Introduction of Other Thrombolytic into Peripheral Vein, Percutaneous Approach (ICD-10-PCS; principal; 2016-09-21)
PROC: 4A023N7 Measurement of Cardiac Sampling and Pressure, Left Heart, Percutaneous Approach (ICD-10-PCS; 2016-09-23)
PROC: B2111ZZ Fluoroscopy of Multiple Coronary Arteries using Low Osmolar Contrast (ICD-10-PCS; 2016-09-23)
PROC: B2151ZZ Fluoroscopy of Left Heart using Low Osmolar Contrast (ICD-10-PCS; 2016-09-23)
PROC: B41D1ZZ Fluoroscopy of Aorta and Bilateral Lower Extremity Arteries using Low Osmolar Contrast (ICD-10-PCS; 2016-09-23)
DX: I63.9 Cerebral infarction, unspecified (principal); I25.110 Atherosclerotic heart disease of native coronary artery with unstable angina pectoris; I73.9 Peripheral vascular disease, unspecified; I69.254 Hemiplegia and hemiparesis following other nontraumatic intracranial hemorrhage affecting left non-dominant side; J44.9 Chronic obstructive pulmonary disease, unspecified; I25.2 Old myocardial infarction; E78.5 Hyperlipidemia, unspecified; I10 Essential (primary) hypertension; F17.210 Nicotine dependence, cigarettes, uncomplicated; G47.33 Obstructive sleep apnea (adult) (pediatric); Z95.5 Presence of coronary angioplasty implant and graft; F10.10 Alcohol abuse, uncomplicated; Z91.19 Patient's noncompliance with other medical treatment and regimen
CPT/HCPCS: 36415; 51702; 70450; 70496; 70498; 70553; 71010; 75630; 78452; 80048; 80053; 80061; 81000; 82962; 83735; 83874; 84100; 84484; 85025; 85379; 85610; 85730; 93005; 93017; 93041; 93306; 93458; 93880; 93922; 93925; 93970; 94640; 94761; 96365; 96375

== ENCOUNTER 2016-11-02 20:54 | Outpatient (CLI) | payer BC ==
[~2016-11-02 20:54] MED LIST changes: +ASPI-983 PO; +ATOR80TA76 PO; +CITA10TA7 PO; +CLOP75TA28 PO; +FLUT12AE4 IH
== END 2016-11-03 06:15 | disposition home or self-care (01) ==
LOC: SLEEP 20:54
PROVIDERS: ATTEND Nurse Practitioner Family
DX: G47.10 Hypersomnia, unspecified (principal); G47.50 Parasomnia, unspecified; R53.83 Other fatigue; I63.9 Cerebral infarction, unspecified
CPT/HCPCS: 95810

== ENCOUNTER 2017-08-14 08:53 | Emergency (ER) | payer BC ==
[~2017-08-14] VITALS: Ht 175.3 cm; Wt 81.6 kg
[~2017-08-14 08:53] MED LIST changes: +ACHD5005 PO; -HYDR-3812 PO
[2017-08-14] MEDS ORDERED: KETOROLAC 30 MG/ML VIAL IVP ONE (09:15)
[2017-08-14] MEDS ORDERED: fentaNYL INJECTION 100 MCG/2 ML AMP IVP ONE (09:15)
[2017-08-14] MEDS ORDERED: ORPHENADRINE 60 MG/2 ML (NORFLEX) AMP IV ONE (09:15)
--- NOTE | 2017-08-14 09:54 | ED Back Pain ---
General Chief Complaint: Back Problems Stated Complaint: BACK PAIN Nursing Triage Note: PT CO OF BACK PAIN PT STATES HAS DGD AND LIFTED ON COUGH LAST PM STATES HAS SEVERE PAIN IN LOWER BACK AND DOWN L LEG TO TOES, PT TO ROOM PER W/C PT HAD DIFFICULTY MOVING FROM W/C TO ED BED Nursing Sepsis Screen: No Definite Risk Source of Information: Patient Exam Limitations: No Limitations History of Present Illness Date Seen by Provider: Aug 14, 2017 Time Seen by Provider: 09:05 Initial Comments This 51-year-old gentleman presents to the emergency room via private vehicle with complaints of severe lower back pain and pain that radiates down into the left leg area and he has chronic back pain from degenerative disc disease that was exacerbated last night after dismantling a couch. He has difficulty ambulating today due to the pain. He has not taken any medications to treat his pain so far. He denies any bowel or bladder dysfunction or any true weakness. He is notably hypertensive and states he normally does not need to treat hypertension. His hypertension is suspected to be secondary to pain. Allergies and Home Medications Allergies Coded Allergies: ceftriaxone sodium (Verified Allergy, Intermediate, ITCHING AND SWELLING, 04/14/11) Home Medications Cyclobenzaprine HCl 10 Mg Tablet, 10 MG PO TID PRN for SPASMS Prescribed by: YUNIOR ADAMS on 08/14/17 1537 Hydrocodone/Acetaminophen 1 Each Tablet, 1-2 EACH PO Q4H PRN for PAIN-MODERATE TO SEVERE Prescribed by: YUNIOR ADAMS on 08/14/17 1537 Prednisone 20 Mg Tab, 40 MG PO DAILY Prescribed by: YUNIOR ADAMS on 08/14/17 1537 Patient Home Medication List Home Medication List Reviewed: Yes Constitutional: no symptoms reported EENTM: no symptoms reported Respiratory: no symptoms reported Cardiovascular: see HPI Gastrointestinal: no symptoms reported Genitourinary: no symptoms reported Musculoskeletal: see HPI Skin: no symptoms reported Psychiatric/Neurological: See HPI Past Cxatlao-Wfxvrd-Ebboes Hx Patient Social History Alcohol Use: Occasionally Uses Number of Drinks Today: AA Alcohol Beverage of Choice: Beer Recreational Drug Use: Yes (POT) Smoking Status: Former Smoker Type Used: Cigars, Cigarettes Former Smoker, Quit: Mar 13, 2017 Recent Foreign Travel: No Contact w/Someone Who Travel: No Recent Infectious Disease Expo: No Recent Hopitalizations: No Physical Abuse: No Sexual Abuse: No Immunizations Up To Date Tetanus Booster (TDap): Less than 5yrs Date of Influenza Vaccine: Dec 12, 2008 Seasonal Allergies Seasonal Allergies: No Past Medical History Surgeries: Yes (stent x 1) Coronary Stent Respiratory: Yes COPD Currently Using CPAP: No Currently Using BIPAP: No Cardiac: Yes (LAD STENT) Coronary Artery Disease, Heart Murmur, High Cholesterol, Hypertension Neurological: Yes (3 TIA'S LAST ONE 2006) Stroke, TIA Reproductive Disorders: No Sexually Transmitted Disease: No HIV/AIDS: No Gastrointestinal: No Musculoskeletal: Yes Degenerate Disk Disease Endocrine: No HEENT: No Cancer: No Psychosocial: No Nursing Suicide Risk Score: 0 Integumentary: No Blood Disorders: No Family Medical History No Pertinent Family Hx Physical Exam Vital Signs Vital Signs - First Documented 08/14/17 09:00 Temp 97.4 Pulse 60 Resp 18 B/P (MAP) 176/107 (130) Pulse Ox 95 Capillary Refill : Less Than 3 Seconds General Appearance: No Apparent Distress, WD/WN HEENT: Normal ENT Inspection Cardiovascular: Regular Rate, Rhythm, No Edema, No Murmur Respiratory: Lungs Clear, Normal Breath Sounds, No Accessory Muscle Use, No Respiratory Distress Gastrointestinal: Non Tender, Soft Back: Other (severe tenderness to palpation of the paraspinous muscles of the lumbar spine bilaterally) Extremity: Normal Inspection, No Pedal Edema Neurologic/Psychiatric: Alert, Oriented x3, Normal Mood/Affect, production corrugator II-XII Norm as Tested, Other (dorsiflexion of the left foot seemed impaired) Skin: Normal Color, Warm/Dry Progress/Results/Core Measures Results/Orders My Orders Orders - YUNIOR ANDRADE MD Saline Lock/Iv-Start (08/14/17 09:11) Fentanyl Injection (Sublimaze Injection (08/14/17 09:15) Ketorolac Injection (Toradol Injection) (08/14/17 09:15) Orphenadrine Injection (Norflex Injectio (08/14/17 09:15) Morphine Injection (Morphine Injection (08/14/17 10:15) Mri Lumbar Spine W/O Contrast (08/14/17 10:27) Morphine Injection (Morphine Injection (08/14/17 13:30) Oxycodone/Apap 5/325mg Tablet (Percocet (08/14/17 13:30) Methylprednisolone Sod Succ (Solu-Medrol (08/14/17 13:30) Ondansetron Injection (Zofran Injectio (08/14/17 15:30) Ondansetron Injection (Zofran Injectio (08/14/17 15:23) Iv Push Manufacturing Engineer Chief Ed (08/14/17 ) Medications Given in ED Vital Signs/I&O 08/14/17 08/14/17 09:00 15:44 Temp 97.4 Pulse 60 62 Resp 18 18 B/P (MAP) 176/107 (130) 144/72 (130) Pulse Ox 95 95 Blood Pressure Mean: 130 Progress Progress Note #1: Time: 09:30 Progress Note Patient was seen and examined. Pain limited the examination to some degree. IV was established patient received fentanyl 75 g, Norflex 60 mg, and Toradol 15 mg. Progress Note #2: Time: 10:47 Progress Note Pain improved to 5 or 6 out of 10 after treatment as above. However, patient was still found to have weak dorsiflexion of the left lower extremity. Patient has not had recent imaging of his spine. MRI does have availability today and lumbar spine MRI has been ordered. Patient will receive a dose of morphine prior to MRI to help him remain flat on the table during the exam. Progress Note #3: Progress Note Patient received more morphine for pain. He became nauseated and then received Zofran. A dose of Solu-Medrol was administered prior to departure to start his steroid therapy. MRI report was reviewed. There were no neurologic emergencies identified on MRI. Patient was able to ambulate at the time of dismissal. Diagnostic Imaging Diagonstic Imaging: MRI Plain Films/CT/US/NM/MRI: other (Lumbar spine) Comments MRI of the lumbar spine viewed by me and report reviewed. See report below: NAME: RODERICK HUI [facility] REC#: [id number] PT STATUS: REG ER : 1965 PHYSICIAN: YUNIOR ANDRADE MD ADMIT DATE: 08/14/17/ER Signed Date of Exam: 08/14/17 MRI LUMBAR SPINE W/O CONTRAST PROCEDURE: MRI lumbar spine. TECHNIQUE: Multiplanar, multisequence MRI of the lumbar spine was performed without contrast. INDICATION: Low back pain after heavy lifting. COMPARISON: None. FINDINGS: There are five lumbar-type vertebral bodies presumed for the purposes of this report. Normal alignment. Vertebral body heights are preserved. Normal bone marrow signal. No abnormal signal in the conus which terminates at L1-L2. Normal morphology of the cauda equina. The visualized abdominal and pelvic contents are unremarkable. L1-L2: No spinal canal, lateral recess, or neural foraminal narrowing. L2-L3: Annular disc bulge, facet arthropathy, and ligamentous hypertrophy result in no substantial spinal canal or lateral recess narrowing. There is mild left neural foraminal narrowing. No right neural foraminal narrowing. L3-L4: Broad-based disc bulge, ligamentous hypertrophy, and facet arthropathy result in moderate bilateral lateral recess and mild spinal canal narrowing. There is also moderate right and mild left neural foraminal narrowing. L4-L5: Broad-based disc bulge, ligamentous hypertrophy, and facet arthropathy result in moderate left and mild right lateral recess narrowing. There is mild spinal canal narrowing. Moderate bilateral neural foraminal narrowing. L5-S1: No spinal canal or lateral recess narrowing. Facet arthropathy contributes to moderate right and mild left neural foraminal narrowing. IMPRESSION: 1. Spondylotic changes result in moderate scattered lateral recess and neural foraminal narrowing. No high-grade spinal canal narrowing. 2. No acute osseous findings. Dictated by: Dictated on workstation # [id number] Dict: 08/14/17 1213 Trans: 08/14/17 1703 Interpreted by: MICHELE PUTNAM MD Electronically signed by: MICHELE PUTNAM MD 08/14/17 1703 Departure Impression Primary Impression: Bulging disc Additional Impressions: Muscle spasm of back Lumbar radiculopathy Disposition: 01 HOME, SELF-CARE Condition: Improved Departure-Patient Inst. Referrals: JACKELYN CARLOS DO (PCP/Family) Primary Care Physician Patient Instructions: Herniated Disc, Radiculopathy (DC) Add. Discharge Instructions: Your pain is likely due to a combination of bulging disks and muscle spasm. Use ibuprofen up to 600 mg every 6 hours as needed for pain. Add hydrocodone for pain not controlled by ibuprofen. Use cyclobenzaprine as prescribed for muscle spasms. The prednisone prescribed should reduce your inflammation and help relax your back gradually over the next few days. Please follow-up with your primary care provider soon as possible. Consider seeking referral to a talent development specialist. Return to the emergency room immediately if you have worsening symptoms including progressive weakness of the legs or loss of control of bowel or bladder. Take your medications with food or milk to avoid irritation on your stomach. Use of gentle heat such as a heating pad on low or a warm shower/bath may help relax your muscles. All discharge instructions reviewed with patient and/or family. Voiced understanding. Scripts Hydrocodone/Acetaminophen (Hydrocodone-Acetamin 5-325 mg) 1 Each Tablet 1-2 EACH PO Q4H PRN for PAIN-MODERATE TO SEVERE, #20 TAB Prov: YUNIOR ANDRADE MD 08/14/17 Prednisone (Prednisone) 20 Mg Tab 40 MG PO DAILY, #8 TAB Prov: YUNIOR ANDRADE MD 08/14/17 Cyclobenzaprine HCl (Cyclobenzaprine HCl) 10 Mg Tablet 10 MG PO TID PRN for SPASMS, #10 TAB Prov: YUNIOR ANDRADE MD 08/14/17 YUNIOR ANDRADE MD Aug 14, 2017 09:54
[2017-08-14] MEDS ORDERED: morphine INJ 10 MG/ML 1ML (SYR OR VIAL) IVP ONE ×2 (10:15→13:30)
--- NOTE | 2017-08-14 12:26 | Diagnostic Imaging Report ---
PROCEDURE: MRI lumbar spine. TECHNIQUE: Multiplanar, multisequence MRI of the lumbar spine was performed without contrast. INDICATION: Low back pain after heavy lifting. COMPARISON: None. FINDINGS: There are five lumbar-type vertebral bodies presumed for the purposes of this report. Normal alignment. Vertebral body heights are preserved. Normal bone marrow signal. No abnormal signal in the conus which terminates at L1-L2. Normal morphology of the cauda equina. The visualized abdominal and pelvic contents are unremarkable. L1-L2: No spinal canal, lateral recess, or neural foraminal narrowing. L2-L3: Annular disc bulge, facet arthropathy, and ligamentous hypertrophy result in no substantial spinal canal or lateral recess narrowing. There is mild left neural foraminal narrowing. No right neural foraminal narrowing. L3-L4: Broad-based disc bulge, ligamentous hypertrophy, and facet arthropathy result in moderate bilateral lateral recess and mild spinal canal narrowing. There is also moderate right and mild left neural foraminal narrowing. L4-L5: Broad-based disc bulge, ligamentous hypertrophy, and facet arthropathy result in moderate left and mild right lateral recess narrowing. There is mild spinal canal narrowing. Moderate bilateral neural foraminal narrowing. L5-S1: No spinal canal or lateral recess narrowing. Facet arthropathy contributes to moderate right and mild left neural foraminal narrowing. IMPRESSION: 1. Spondylotic changes result in moderate scattered lateral recess and neural foraminal narrowing. No high-grade spinal canal narrowing. 2. No acute osseous findings. Dictated by: Dictated on workstation # [id number]
[2017-08-14] MEDS ORDERED: methylPREDNISolone 125 MG (Solu-MEDROL) VIAL IVP ONE (13:30)
[2017-08-14] MEDS ORDERED: oxyCODONE/APAP 5/325MG (PERCOCET 5) TABLET PO ONE (13:30)
[2017-08-14] MEDS ORDERED: ONDANSETRON 4 MG/2 ML (SDV) Z0FRAN ONE (15:23)
[2017-08-14] MEDS ORDERED: ONDANSETRON 4 MG/2 ML (SDV) Z0FRAN IVP ONE (15:30)
[2017-08-14] MEDS ORDERED: HYDR-3812 PO (15:37)
[2017-08-14] MEDS ORDERED: CYCL10TA9 PO (15:37)
[2017-08-14] MEDS ORDERED: PRD20T PO (15:37)
[2017-08-14 15:44] VITALS: BP 144/72
== END 2017-08-14 15:44 | disposition home or self-care (01) ==
LOC: EDUNIT# 08:53 → ER 08:55
DX: M51.16 Intervertebral disc disorders with radiculopathy, lumbar region (principal); M62.830 Muscle spasm of back; J44.9 Chronic obstructive pulmonary disease, unspecified; I25.10 Atherosclerotic heart disease of native coronary artery without angina pectoris; E78.00 Pure hypercholesterolemia, unspecified; I10 Essential (primary) hypertension; Z86.73 Personal history of transient ischemic attack (TIA), and cerebral infarction without residual deficits; Z87.891 Personal history of nicotine dependence; Z88.8 Allergy status to other drugs, medicaments and biological substances
CPT/HCPCS: 72148; 96374; 96375; 96376

== ENCOUNTER 2017-09-21 13:36 | Outpatient (CLI) | payer BC ==
[~2017-09-21] VITALS: Ht 175.3 cm; Wt 81.6 kg
[~2017-09-21 13:36] MED LIST changes: +HYDR-3812 PO; +PRD20T PO
[2017-09-21] MEDS ORDERED: methylPREDNISolone 80 MG/ML (DEPO MEDROL) VIAL ONE (13:42)
[2017-09-21 13:55] VITALS: BP 163/96
[2017-09-21 14:24] VITALS: BP 155/99
--- NOTE | 2017-09-21 21:53 | OPERATIVE REPORT ---
DATE OF SERVICE: 09/21/2017 DIAGNOSIS: Lumbar radiculopathy. PROCEDURE: Fluoroscopic guided interlaminar epidural steroid injection. PROCEDURE IN DETAIL: After obtaining informed consent from the patient, the patient's chart was reviewed. The patient was then brought to the procedure room and placed in the prone position. A timeout was performed. The back was prepped with antiseptic solution and under fluoro guidance, the patient's lumbar spine was identified at the level of L4-L5. The L4-L5 vertebra was identified with fluoro guidance and approximately 2 mL of 1.5% lidocaine solution was used to anesthetize the skin directly down to the pedicle of the L4-L5 and under fluoroscopic guidance, the tract was anesthetized up to the interlaminar space and the ligamentum flavum. This needle was withdrawn. Then, a 20-gauge 3.5 inch Tuohy needle was then directed following the same tract that was anesthetized with the spinal needle. Using loss of resistance, the epidural space was identified and then the syringe was switched for contrast solution which was injected, approximately 1 mL. After secondary confirmation of epidural access, another syringe was placed and 80 mg of Depo-Medrol was injected. The Tuohy needle was then flushed out with approximately 2 mL of the normal saline used from the loss of resistance syringe. Band-Aids were applied to all the procedure sites. The patient tolerated the procedure well and was taken to the recovery room in stable condition. COMPLICATIONS: None. Job ID: [id number] DocumentID: [id number] Dictated Date: 09/21/2017 14:28:05 Biofuels Manager Date: 09/21/2017 21:53:10 Dictated By: BLAINE PALACIOS DO
== END 2017-09-21 14:28 | disposition home or self-care (01) ==
LOC: CARD 13:36
PROVIDERS: ATTEND Pain Medicine Interventional Pain Medicine
DX: M54.16 Radiculopathy, lumbar region (principal)
CPT/HCPCS: 62323

== ENCOUNTER 2017-10-09 15:50 | Outpatient (RCR) | payer BC | END 2017-10-17 14:23 | disposition home or self-care (01) | PROVIDERS: ATTEND Pain Medicine Interventional Pain Medicine | DX: M47.816 Spondylosis without myelopathy or radiculopathy, lumbar region (principal) ==

== ENCOUNTER 2018-04-05 14:28 | Emergency (ER) | payer SELFPAY, BC, OTHER | END 2018-04-05 16:55 | disposition home or self-care (01) | LOC: ER 14:28 ==

== ENCOUNTER 2018-08-15 18:17 | Emergency (ER) | payer OTHER ==
[~2018-08-15] VITALS: Ht 175.3 cm; Wt 74.8 kg
[2018-08-15 18:35] LABS: HEMOGLOBIN 16.8 G/DL (13.3-17.7); MEAN PLATELET VOLUME 9.5 FL (7.4-10.4); RED CELL DISTRIBUTION WIDTH 12.2 % (10.0-14.5); WHITE BLOOD COUNT 9.2 10^3/uL (4.3-11.0)
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
[2018-08-15] MEDS ORDERED: TETANUS,DIPTH,PERTUSS P/F (BOOSTRIX) 0.5 ML VIAL IM ONE (18:45)
[2018-08-15 18:51] LABS: FIBRIN DEGRADATION PRODUCTS 2.13 UG/ML (0.00-0.49); PARTIAL THROMBOPLASTIN TIME 28 SEC (24-35); PROTHROMBIN TIME PATIENT 13.6 SEC (12.2-14.7)
[2018-08-15 18:57] LABS: ALANINE AMINOTRANSFERASE 19 U/L (0-55); ALBUMIN 4.2 GM/DL (3.2-4.5); ALKALINE PHOSPHATASE 76 U/L (40-136); BILIRUBIN,DIRECT 0.3 MG/DL (0.0-0.3); BILIRUBIN,INDIRECT 0.4 MG/DL; BILIRUBIN,TOTAL 0.7 MG/DL (0.1-1.0); BUN/CREATININE RATIO 11; CALCIUM 9.5 MG/DL (8.5-10.1); CARBON DIOXIDE 24 MMOL/L (21-32); CHLORIDE 106 MMOL/L (98-107); CREATINE KINASE 86 U/L (30-200); CREATININE SERUM 0.84 MG/DL (0.60-1.30); GFR ESTIMATED > 60; GLUCOSE 90 MG/DL (70-105); MAGNESIUM 2.2 MG/DL (1.8-2.4); PHOSPHORUS 3.1 MG/DL (2.3-4.7); POTASSIUM 3.5 MMOL/L (3.6-5.0); SODIUM 140 MMOL/L (135-145)
[2018-08-15] MEDS ORDERED: NS 100 ML (IVPB) BAG IV ONE (19:00)
[2018-08-15] MEDS ORDERED: IOHEXOL 350 MG/ML 100 ML (OMNIPAQUE 350) VIAL IV ONE (19:00)
[2018-08-15] MEDS ORDERED: HOLD METFORMIN - RECEIVED CONTRAST 20 ML VIAL IV SCH (19:00)
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
--- NOTE | 2018-08-15 19:10 | NUR ---
NEAL CARDENAS COLEIGHS HERE SPEAKING WITH PATIENT SADIA.
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
--- OUTSIDE RECORDS SUMMARY | 2018-08-15 19:20 | XMS REPORT ---
Author Author Migration, Doctor Organization [facility] Address Unknown Phone Unavailable Care Team Providers Care Promotions Producer Name Role Phone Migration, Doctor Unavailable Unavailable PROBLEMS Unknown Problems ALLERGIES No Information ENCOUNTERS Encounter Location Date Diagnosis [facility] [id number] [place] [id number] Feb, Bronchitis J40 and Impacted cerumen of left ear H61.22 [facility] [id number] [place] [phone] Dec, Abdominal pain R10.9 [facility] [id number] [place] [phone] Jun, [facility] [id number] [place] [phone] Jun, [facility] [id number] [place] [phone] Apr, [facility] [id number] [place] [phone] Apr, [facility] [address] [address] Dec, [facility] [id number] [place] [phone] Dec, [facility] [id number] [place] [phone] Apr, [facility] [id number] [place] [phone] Apr, [facility] [id number] [place] [phone] Dec, [facility] [id number] [address] 10 Dec, 2012 [facility] [address] [address] 27 May, 2012 [facility] [address] [address] May, [facility] [address] [address] May, [facility] [address] [address] 20 May, 2012 [facility] [address] [address] 14 May, 2012 [facility] [address] [address] 19 Apr, 2012 [facility] [address] [address] 18 Apr, 2012 [facility] [address] [address] 13 Apr, 2012 [facility] [address] [address] 16 Mar, 2012 [facility] [id number] [address] 14 Mar, 2012 [facility] [id number] [address] 11 Mar, 2012 IMMUNIZATIONS No Known Immunizations SOCIAL HISTORY Never Assessed REASON FOR VISIT EMR-[facility] PLAN OF CARE VITAL SIGNS MEDICATIONS No Known Medications RESULTS No Results PROCEDURES No Known procedures INSTRUCTIONS MEDICATIONS ADMINISTERED No Known Medications MEDICAL (GENERAL) HISTORY Type Description Date Medical History cardiovascular disease
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
--- OUTSIDE RECORDS SUMMARY | 2018-08-15 19:20 | XMS REPORT ---
Author Author Migration, Doctor Organization [facility] Address Unknown Phone Unavailable Care Team Providers Care Computational Scientist Name Role Phone Migration, Doctor Unavailable Unavailable PROBLEMS Unknown Problems ALLERGIES No Information ENCOUNTERS Encounter Location Date Diagnosis [facility] [id number] [place] [id number] Feb, Bronchitis J40 and Impacted cerumen of left ear H61.22 [facility] [id number] [place] [phone] Dec, Abdominal pain R10.9 [facility] [id number] [place] [phone] Jun, [facility] [id number] [place] [phone] Jun, [facility] [id number] [place] [phone] Apr, [facility] [id number] [place] [phone] Apr, [facility] [id number] [address] Dec, [facility] [id number] [place] [phone] Dec, [facility] [id number] [place] [phone] Apr, [facility] [id number] [place] [phone] Apr, [facility] [id number] [place] [phone] Dec, [facility] [id number] [address] 10 Dec, 2012 [facility] [id number] [place] [address] 27 May, 2012 [facility] [id number] [place] [address] May, [facility] [id number] [place] [address] May, [facility] [id number] [place] [address] 20 May, 2012 [facility] [id number] [place] [address] 14 May, 2012 [facility] [id number] [place] [address] 19 Apr, 2012 [facility] [id number] [place] [address] 18 Apr, 2012 [facility] [id number] [place] [address] 13 Apr, 2012 [facility] [id number] [place] [address] 16 Mar, 2012 [facility] [id number] [address] 14 Mar, 2012 [facility] [id number] [place] [address] 11 Mar, 2012 IMMUNIZATIONS No Known Immunizations SOCIAL HISTORY Never Assessed [place] [place] VITAL SIGNS MEDICATIONS No Known Medications RESULTS No Results PROCEDURES No Known procedures INSTRUCTIONS MEDICATIONS ADMINISTERED No Known Medications MEDICAL (GENERAL) HISTORY Type Description Date Medical History cardiovascular disease
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
--- NOTE | 2018-08-15 19:41 | NUR ---
DR SHAH HERE SEEING PATIENT.
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
[2018-08-15] MEDS ORDERED: fentaNYL INJECTION 100 MCG/2 ML AMP IVP ONE (19:45)
[2018-08-15] MEDS ORDERED: HYDROcodone/APAP 10 MG/325 MG (LORTAB) TAB PO ONE (19:45)
[2018-08-15] MEDS ORDERED: RX-CYCLOBENZAPRINE 10 MG (FLEXERIL) TAB PPK#3 PO STA (19:45)
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
[2018-08-15] MEDS ORDERED: HYDR-87 PO (19:48)
[2018-08-15] MEDS ORDERED: CYCL10TA9 PO (19:48)
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
[2018-08-15 20:10] VITALS: BP 176/102
[2018-08-15 20:22] LABS: BILIRUBIN,URINE NEGATIVE (NEGATIVE); CLARITY,URINE CLEAR; COLOR,URINE YELLOW; GLUCOSE, URINE (UA) NEGATIVE (NEGATIVE); KETONES,URINE NEGATIVE (NEGATIVE); LEUKOCYTE ESTERASE ,URINE NEGATIVE (NEGATIVE); NITRITE,URINE NEGATIVE (NEGATIVE); PH,URINE 6 (5-9); PROTEIN,URINE NEGATIVE (NEGATIVE); UROBILINOGEN,URINE NORMAL (NORMAL)
[2018-08-15 20:27] LABS: BACTERIA,URINE NEGATIVE /HPF; RBC,URINE 0-2 /HPF
[2018-08-15] MEDS ORDERED: RX-HYDROCODONE/APAP 5/325 MG #4 TAB PK PO PRN (20:30)
[2018-08-15 20:39] LABS: AMPHETAMINE SCREEN, URINE NEGATIVE (NEGATIVE); BARBITURATE SCREEN URINE NEGATIVE (NEGATIVE); BENZODIAZEPINES SCREEN URINE NEGATIVE (NEGATIVE); CANNABINOID SCREEN, URINE POSITIVE (NEGATIVE); COCAINE SCREEN URINE NEGATIVE (NEGATIVE); METHADONE STAT NEGATIVE (NEGATIVE); METHAMPHETAMINE SCREEN URINE S NEGATIVE (NEGATIVE); OPIATE SCREEN URINE NEGATIVE (NEGATIVE); OXYCODONE STAT NEGATIVE (NEGATIVE); PROPOXYPHENE STAT NEGATIVE (NEGATIVE); TRICYCLIC ANTIDEPRESSANTS SCRE NEGATIVE (NEGATIVE)
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
== END 2018-08-15 20:25 | disposition home or self-care (01) ==
LOC: ER 18:23 → EDUNIT# 18:23 → ER 20:25
DX: S16.1XXA Strain of muscle, fascia and tendon at neck level, initial encounter (principal); S39.012A Strain of muscle, fascia and tendon of lower back, initial encounter; S60.221A Contusion of right hand, initial encounter; S80.11XA Contusion of right lower leg, initial encounter; S80.12XA Contusion of left lower leg, initial encounter; R10.2 Pelvic and perineal pain; M25.551 Pain in right hip; I10 Essential (primary) hypertension; I25.10 Atherosclerotic heart disease of native coronary artery without angina pectoris; J44.9 Chronic obstructive pulmonary disease, unspecified; E78.00 Pure hypercholesterolemia, unspecified; R40.2142 Coma scale, eyes open, spontaneous, at arrival to emergency department; R40.2252 Coma scale, best verbal response, oriented, at arrival to emergency department; R40.2362 Coma scale, best motor response, obeys commands, at arrival to emergency department; F12.10 Cannabis abuse, uncomplicated; F17.210 Nicotine dependence, cigarettes, uncomplicated; Z79.52 Long term (current) use of systemic steroids; Z86.73 Personal history of transient ischemic attack (TIA), and cerebral infarction without residual deficits; Z88.1 Allergy status to other antibiotic agents; Z95.5 Presence of coronary angioplasty implant and graft; Z23 Encounter for immunization; V23.4XXA Motorcycle driver injured in collision with car, pick-up truck or van in traffic accident, initial encounter
CPT/HCPCS: 36415; 70450; 71045; 71260; 72125; 72128; 72131; 72170; 73130; 74177; 80048; 80076; 80306; 80320; 81000; 82550; 83735; 84100; 84484; 85027; 85379; 85610; 85730; 86850; 86900; 86901; 86920; 90471; 90715; 96374